=== PATIENT | female | born 1940 | race Caucasian/White ===

== ENCOUNTER 2016-07-04 08:49 | Day surgery (SDC) | payer MEDICARE ==
[~2016-07-04 08:49] MED LIST: DIPRIVAN 200 MG/20 ML IV ONE; Kenalog-40 IJ ONE; Sensorcaine 0.25% 10 ML IJ ONE
[2016-07-04] MEDS ORDERED: Lactated Ringers 1,000 ML IV ONE (11:24)
[2016-07-04] MEDS ORDERED: Lactated Ringers 1,000 ML IV SCH (11:30)
[2016-07-04] MEDS ORDERED: Pepcid 20 MG VIAL IV ONE (11:34)
[2016-07-04 11:42] VITALS: BP 134/75; PULSE 67; O2SAT 94
--- NOTE | 2016-07-04 14:28 | XRAY ---
Indication: Right L2-L5 MBB. Intraoperative fluoroscopy was provided for 17 seconds. Single frontal digital spot image of the lower lumbar spine submitted for interpretation demonstrates posterior spinal needles with the tips projecting over the expected course of the right L2-L5 nerve roots. Incidental L2 and L3 kyphoplasty. Correlate with intraoperative findings/report.
--- NOTE | 2016-07-04 16:42 | XRAY ---
17 seconds fluoroscopy time in surgery for right MBB L2-5.
== END 2016-07-04 12:00 | disposition home or self-care (01) ==
LOC: SDC-PAIN 08:49
PROVIDERS: ATTEND Pain Medicine Interventional Pain Medicine
DX: M47.816 Spondylosis without myelopathy or radiculopathy, lumbar region (principal); M54.5 Low back pain; S32.000D Wedge compression fracture of unspecified lumbar vertebra, subsequent encounter for fracture with routine healing
CPT/HCPCS: 64493; 64494; 64495; 72020; 77003; J2704; J3301

== ENCOUNTER 2016-08-14 08:32 | Inpatient (IN) | payer MEDICARE ==
[2016-08-14] MEDS ORDERED: Sodium Chloride 0.9% 500 ML 500 ML IV ONE (18:46)
[2016-08-14] MEDS ORDERED: TYLENOL 325 MG PO PRN (18:48)
[2016-08-14] MEDS ORDERED: Phenergan 25 MG INJ IV PRN (18:51)
[2016-08-14] MEDS ORDERED: Robitussin 100 MG/5 ML PO PRN (18:53)
[2016-08-14 19:46] LABS: BASOPHIL % 0.5 % (0.0-0.4); Eosinophil % 1.4 % (0.00-5.0); Granulocytes % 54.7 % (36.0-66.0); Lymphocytes % 32.5 % (24.0-44.0); Mean Cell Volume 92.5 fl (78-100); Mean Platelet Volume 10.7 fl (6-9.5); Monocytes % 10.9 % (0.0-12.0); Platelet Count 147 K/mm3 (150-450); Red Blood Count 4.01 M/mm3 (4.1-5.4); Red Cell Distribution Width 15.2 % (11.5-14.0); White Blood Count 4.3 K/mm3 (4.0-10.5)
[2016-08-14 19:49] LABS: Mean Corpuscular Hemoglobin 30.1 pg (26-32)
[2016-08-14 19:50] LABS: A-aADO2 26; ARTERIAL BLD GAS O2 SATURATION 97.9 % (95-100); ARTERIAL BLOOD GAS BASE EXCESS 3.3 (-2.0-2.0); ARTERIAL BLOOD GAS FIO2 21 %; ARTERIAL BLOOD GAS PO2 72 mmHg (75-100); ARTERIAL BLOOD GAS pH 7.44 (7.35-7.45)
[2016-08-14] MEDS ORDERED: Zithromax 500 MG/ 250 ML NaCl Premix 250 ML IV SCH (20:00)
[2016-08-14 20:09] LABS: ALBUMIN 3.2 g/dL (3.4-5.0); ANION GAP 17.3 MEQ/L (5-15); BILIRUBIN,TOTAL 0.6 mg/dL (0.2-1.0); Carbon Dioxide 24.7 mEq/L (21-32); Potassium 3.8 mEq/L (3.5-5.1); Total Protein 6.6 gm/dL (6.4-8.2)
[2016-08-14] MEDS ORDERED: Sodium Chloride 0.9% 1000 ML 0 ML ONE (20:48)
[2016-08-14] MEDS ORDERED: LIPITOR 40MG PO ONE (21:00)
[2016-08-14] MEDS ORDERED: MS CONTIN 30 MG PO PRN (21:00)
[2016-08-14] MEDS ORDERED: Mirapex 0.5 MG Tablet PO ONE (21:00)
[2016-08-14] MEDS ORDERED: BENADRYL 25 MG CAPSULE PO ONE (21:00)
[2016-08-14] MEDS ORDERED: NORCO 7.5/325 MG TAB PO ONE (21:00)
[2016-08-14] MEDS ORDERED: NEURONTIN 300 MG PO ONE (21:00)
[2016-08-14] MEDS ORDERED: Carafate SUSPENSION 1000 MG/10 ML PO ONE (21:00)
[2016-08-14] MEDS ORDERED: ZOCOR 20MG ONE (22:03)
[2016-08-14] MEDS: Dextrose 5% -0.45 NaCl 1000 ML 1,000 ML IV SCH (22:06)
[2016-08-14] MEDS: ROCEPHIN 1 Gm-D5w 50 ml Bag** 50 ML IV SCH (22:06)
[2016-08-14 22:07] LABS: Bacteria RARE /HPF (NEGATIVE); COMPLETE URINE MICROSCOPIC? YES; Collection Type CLEAN CATCH; Epithelial Cells RARE /HPF (FEW); Mucus SLIGHT /HPF (NEGATIVE); WBC 0-2 /HPF (0-5)
[2016-08-15] MEDS: DUONEB 0.5-3 MG/3 ml Neb IH SCH ×4 (00:34→19:22)
[2016-08-15 07:34] LABS: BASOPHIL % 0.6 % (0.0-0.4); Eosinophil % 1.7 % (0.00-5.0); Granulocytes % 52.5 % (36.0-66.0); Lymphocytes % 37.1 % (24.0-44.0); Mean Cell Volume 92.5 fl (78-100); Mean Corpuscular Hemoglobin 29.7 pg (26-32); Mean Platelet Volume 11.1 fl (6-9.5); Monocytes % 8.1 % (0.0-12.0); Platelet Count 173 K/mm3 (150-450); Red Blood Count 4.38 M/mm3 (4.1-5.4); Red Cell Distribution Width 15.2 % (11.5-14.0); White Blood Count 5.2 K/mm3 (4.0-10.5)
[2016-08-15 08:11] LABS: ALLEN TEST OK? YES
[2016-08-15 08:21] LABS: ALBUMIN 3.3 g/dL (3.4-5.0); ANION GAP 14.3 MEQ/L (5-15); BILIRUBIN,TOTAL 0.6 mg/dL (0.2-1.0); Carbon Dioxide 27.4 mEq/L (21-32); Potassium 3.8 mEq/L (3.5-5.1)
--- NOTE | 2016-08-15 08:41 | XRAY ---
Indication: Cough. General malaise. Comparison: September 04, 2008. PA/lateral chest again hyperinflated with now subtle left base infiltrate versus atelectasis. No consolidation or large effusion. Stable cardiomegaly with interval cardiac valvular replacement surgery and left-sided dual-lead pacemaker insertion. Vascularity normal. Stable hiatal hernia. Bony thorax again demonstrates osteopenia. There are now multilevel thoracolumbar compression deformities of uncertain chronicity and what appears to be the L1/L2 kyphoplasty. Impression: 1. New left base infiltrate/atelectasis. Correlate clinically. 2. Stable cardiomegaly, COPD, and hiatal hernia. 3. Multilevel thoracolumbar compression deformities of uncertain chronicity.
--- NOTE | 2016-08-15 09:52 | HP ---
HISTORY OF PRESENT ILLNESS: This is a 76 year-old woman who presented to my clinic with her for a sick visit. They report that she started feeling bad last Saturday like she was getting a cold then started having a stomach ache, chills, sweating and had headache as well. They denied any fever. She had some vomiting and loose cough and trouble sleeping. She reports she had been trying to drink fluids and reported she had been urinating okay. She was having a lot of trouble ambulating in the office. She had some chronic pain at baseline and is usually able to ambulate with a walker but was using the wheelchair available in the office with her assisting her to the bathroom. We tested her for influenza A and B in our clinic and that was negative. Given her poor condition as well as an oxygen saturation of 93% on room air it was decided to make her admission to the hospital for observation for further work up and evaluation for vomiting, dehydration and possible pneumonia. This morning the patient is a poor historian. She is falling asleep eating her breakfast and is alert and oriented x3 but thinks she took her morphine last night even though the nurses report that she did not want it and it was not documented that it was given. She does have a history of dementia. REVIEW OF SYSTEMS: Unobtainable any further than what is above in the history of present illness due to her dementia. 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 Kebede did. Moderate aortic valve stenosis, hypertension, hyperlipidemia, gastroesophageal reflux, Alzheimer's, constipation. PAST SURGICAL HISTORY: Appendectomy. Back surgery x2 by Dr. Lanier 2009. She had annuloplasty ring at [facility]. Tricuspid and mitral valve surgeries. Pacemaker placed in 2012. Cholecystectomy. Hysterectomy. Right ankle surgery. Removal of her ovary. Colonoscopy in 2014 that was normal. MEDICATIONS: Amlodipine 10 mg p.o. daily, atorvastatin 20 mg p.o. q.h.s., carvedilol 25 mg p.o. b.i.d., vitamin D 1,000 units p.o. daily, cranberry 500 mg daily, diphenhydramine 50 mg p.o. q.h.s., Aricept 10 mg p.o. daily, fluoxetine 40 mg p.o. daily, Furosemide 40 mg p.o. b.i.d., gabapentin 300 mg p.o. t.i.d., hydrocodone with acetaminophen 1 tablet p.o. b.i.d. as needed, Levemir 20 units subcutaneously b.i.d. but she states she only takes it depending on what her Accu-Chek is. Levothyroxine 75 mcg p.o. daily, losartan 100 mg p.o. daily, Amitiza 8 mcg p.o. b.i.d., Metformin 500 mg p.o. b.i.d., morphine sulfate 30 mg p.o. b.i.d. extended release, omeprazole 40 mg p.o. daily, potassium chloride 10 mEq p.o. b.i.d., Mirapex 1 mg p.o. q.h.s., docusate with Senna 1 tablet p.o. daily, sulcralfate 10 ml p.o. four times a day, vitamin E 400 units p.o. daily. ALLERGIES: OXYCOCODONE, PAPER TAPE. SOCIAL HISTORY: She is and lives with her . No tobacco or alcohol use. FAMILY HISTORY: Her mother had colon cancer. Her father had a CVA. She had a sister and brother with lung cancer. A sister with Alzheimer's. PHYSICAL EXAMINATION: VITAL SIGNS: Temperature current 98.3F, temperature max 98.7F, heart rate 69 to 74, respiratory rate 17 to 20, blood pressure 134 to 139 over 66 to 99, weight 90.7 kg. Oxygen saturation 94 to 96% on room air to 2 liters nasal cannula. GENERAL: The patient is sitting up in bed with her breakfast in front of her. She is alert and oriented x3 but falling asleep while I am talking to her. CVS: She has a regular rate and rhythm. She has a 3/6 systolic ejection murmur heard best at the right upper sternal border. No gallops or rubs. LUNGS: Clear to auscultation bilaterally. She has a wet sounding cough. No retractions. No dyspnea. ABDOMEN: Soft, nontender, nondistended with normal bowel sounds. EXTREMITIES: No clubbing, cyanosis or edema. SKIN: Warm, dry and intact. LABORATORY DATA AND TESTS: Her white blood cell count was normal at 4.3, repeat white blood cell count this morning 5.2. CMP: potassium 8.4, glucose 162, albumin 3.3. UA was negative. She has blood cultures x2 in the lab. A chest x-ray was read as new left base infiltrate/atelectasis. ASSESSMENT AND PLAN: 1) PNEUMONIA LEFT LOWER LOBE OF THE LUNG: Continue with azithromycin and ceftriaxone. 2) VOMITING: This seems to have resolved, will continue to monitor closely. 3) DEHYDRATION: She was given 500 ml normal saline bolus and D5 half normal saline at 60 ml/hour overnight. I am going to decrease her fluids to 30 ml/hour as I think her dehydration has resolved. 4) CHRONIC PAIN: Will continue with her home pain medications. 5) DEMENTIA: Will continue with her home medications.
[2016-08-15] MEDS ORDERED: Zithromax 500 MG/ 250 ML NaCl Premix 250 ML IV SCH (10:00)
[2016-08-15] MEDS ORDERED: CRANBERRY 500 MG PO SCH (10:00)
[2016-08-15] MEDS ORDERED: MEDICATION INTERVENTION MC PRN (10:50)
[2016-08-15] MEDS: ENOXAPARIN SODIUM SQ SCH (11:04)
[2016-08-15] MEDS: Lantus Insulin SQ SCH (11:05)
[2016-08-15] MEDS: NEURONTIN 300 MG PO SCH ×3 (11:07→21:02)
[2016-08-15] MEDS: COREG 12.5 MG PO SCH ×2 (11:08→21:02)
[2016-08-15] MEDS: Senokot-S Tablet PO SCH (11:08)
[2016-08-15] MEDS: Prozac 20 MG PO SCH (11:09)
[2016-08-15] MEDS: NORVASC 5 MG PO SCH (11:10)
[2016-08-15] MEDS: Cozaar 50 MG PO SCH (11:11)
[2016-08-15] MEDS: VITAMIN D PO SCH (11:12)
[2016-08-15] MEDS: Protonix 40MG Tablet PO SCH (11:12)
[2016-08-15] MEDS: Klor Con 10 MEQ PO SCH ×2 (11:12→21:02)
[2016-08-15] MEDS: Lasix 40 MG PO SCH ×2 (11:12→16:34)
[2016-08-15] MEDS: SYNTHROID 75 MCG PO SCH (11:13)
[2016-08-15] MEDS: Aricept 10 MG PO SCH (11:13)
[2016-08-15] MEDS: Vitamin E 400 UNIT SOFTGEL PO SCH (11:14)
[2016-08-15] MEDS: MS CONTIN 30 MG PO SCH ×2 (11:24→21:02)
[2016-08-15] MEDS: Carafate SUSPENSION 1000 MG/10 ML PO SCH ×3 (11:47→21:01)
[2016-08-15] MEDS: NovoLOG Insulin SQ PRN ×2 (12:02→16:44)
[2016-08-15] MEDS: Dextrose 5% -0.45 NaCl 1000 ML 1,000 ML IV SCH (18:28)
[2016-08-15] MEDS: ROCEPHIN 1 Gm-D5w 50 ml Bag** 50 ML IV SCH (20:02)
[2016-08-15] MEDS: Mirapex 0.5 MG Tablet PO SCH (21:02)
[2016-08-15] MEDS: ZOCOR 20MG PO SCH (21:02)
[2016-08-15] MEDS: Zithromax 500 MG/ 250 ML NaCl Premix 250 ML IV SCH (21:02)
[2016-08-16] MEDS: DUONEB 0.5-3 MG/3 ml Neb IH SCH ×4 (01:17→18:22)
[2016-08-16] MEDS: Carafate SUSPENSION 1000 MG/10 ML PO SCH ×4 (08:04→21:09)
[2016-08-16] MEDS: Lantus Insulin SQ SCH (08:05)
--- NOTE | 2016-08-16 08:37 | PCM.NOTE ---
Date and Time: 08/16/16831 Subjective Assessment: Vernell reports that she slept better and feels a little better but she continues to have a cough, wheezing, and generalized weakness. I discussed with her and her and he is concerned about her strength and taking care of herself at home. At baseline, she can ambulated with her walker and usually can take care of her ADL's. He states he helps her wash her back. She has become more deconditioned recently. - Review of Systems Constitutional: Fatigue Respiratory: Cough, Short Of Breath, Wheezing Cardiac: No Symptoms Abdominal/Gastrointestinal: No Symptoms Genitourinary Symptoms: No Symptoms Musculoskeletal: No Symptoms Skin: No Symptoms Objective Exam General Appearance: no apparent distress Neurologic Exam: alert, cooperative, normal mood/affect Skin Exam: normal color, warm, dry, No rash Respiratory Exam: airway intact, wheezing, No respiratory distress, No accessory muscle use, No crackles/rales, No rhonchi Cardiovascular Exam: regular rate/rhythm, normal heart sounds, No murmur, No friction rub, No gallop Gastrointestinal/Abdomen Exam: soft, normal bowel sounds, No tenderness, No distention, No mass Extremity Exam: other OBJECTIVE DATA Vital Signs: Vital Signs - 24 hr Temp Pulse Resp BP Pulse Ox 08/16/16 07:25 99.5 F 70 17 147/67 94 L 08/16/16 06:55 82 18 92 L 08/16/16 04:00 99.4 F 69 18 128/60 91 L 08/16/16 01:17 89 16 92 L 08/15/16 23:54 99.5 F 70 16 123/61 91 L 08/15/16 20:00 98.5 F 70 20 133/63 93 L 08/15/16 19:22 69 16 92 L 08/15/16 16:00 98.4 F 71 18 135/62 93 L 08/15/16 13:13 83 18 93 L 08/15/16 11:54 98.8 F 70 18 146/64 92 L Oxygen-Last 24 hours O2 Percentage 2 Liters = 28% Pain Assessment - Last Documented Pain Intensity 4 Pain Scale Used 0-10 Pain Scale Intake and Output: Intake & Output 08/14/16 08/15/16 08/16/16 08/17/16 06:59 06:59 06:59 06:59 Intake Total 806 1524 Output Total 600 600 600 Balance 206 924 -600 Weight 90.718 kg Lab Results: Accuchecks Date 08/16/16 Date 08/15/16 Date 08/15/16 Time 07:30 Time 16:30 Time 11:30 Accucheck Value: 135 Accucheck Value: 273 Accucheck Value: 211 Radiology Exams: Radiology Procedures Category Date Time Status CHEST 2 VIEWS (PA AND LAT) Urgent Exams 08/14/16 18:38 Completed Multi-Disciplinary Progress Notes: Multi-Disciplinary Progress Notes 08/15/16 13:06 Pharmacy Note by Walker Calvillo Please be aware of possible drug interaction with Zithromax and Aricept. May prolong QT interval. Initialized on 08/15/16 13:06 - END OF NOTE Assessment/Plan (1) Pneumonia Current Visit: Yes Status: Acute Qualifiers: Laterality: left Lung location: lower lobe of lung Assessment & Plan: Continue with azithromycin and ceftriaxone Day 3. Continue with oxygen as needed. Continue with breathing treatments. She may have some underlying copd that has not been diagnosed. Will start prednisone 40 mg po daily for 4 days. Code(s): J18.9 - PNEUMONIA, UNSPECIFIED ORGANISM (2) Chronic pain Current Visit: Yes Status: Acute Assessment & Plan: Continue her home doses of morphine sulfate ER 30 mg po bid. Code(s): G89.29 - OTHER CHRONIC PAIN (3) Dementia Current Visit: Yes Status: Acute Assessment & Plan: She is alert and oriented and talkative but often can't remember what happened the day before. Code(s): F03.90 - UNSPECIFIED DEMENTIA WITHOUT BEHAVIORAL DISTURBANCE
[2016-08-16] MEDS: COREG 12.5 MG PO SCH ×2 (09:33→21:08)
[2016-08-16] MEDS: Aricept 10 MG PO SCH (09:33)
[2016-08-16] MEDS: Klor Con 10 MEQ PO SCH ×2 (09:34→21:08)
[2016-08-16] MEDS: MS CONTIN 30 MG PO SCH ×2 (09:34→21:07)
[2016-08-16] MEDS: ENOXAPARIN SODIUM SQ SCH (09:34)
[2016-08-16] MEDS: Cozaar 50 MG PO SCH (09:34)
[2016-08-16] MEDS: Lasix 40 MG PO SCH ×2 (09:34→16:42)
[2016-08-16] MEDS: NORVASC 5 MG PO SCH (09:35)
[2016-08-16] MEDS: VITAMIN D PO SCH (09:35)
[2016-08-16] MEDS: NEURONTIN 300 MG PO SCH ×3 (09:35→21:08)
[2016-08-16] MEDS: Protonix 40MG Tablet PO SCH (09:35)
[2016-08-16] MEDS: Prozac 20 MG PO SCH (09:35)
[2016-08-16] MEDS: Senokot-S Tablet PO SCH (09:35)
[2016-08-16] MEDS: SYNTHROID 75 MCG PO SCH (09:35)
[2016-08-16] MEDS: Vitamin E 400 UNIT SOFTGEL PO SCH (09:36)
[2016-08-16] MEDS: NovoLOG Insulin SQ PRN ×2 (16:43→23:21)
[2016-08-16] MEDS: ROCEPHIN 1 Gm-D5w 50 ml Bag** 50 ML IV SCH (20:56)
[2016-08-16] MEDS: Zithromax 500 MG/ 250 ML NaCl Premix 250 ML IV SCH (21:07)
[2016-08-16] MEDS: Mirapex 0.5 MG Tablet PO SCH (21:08)
[2016-08-16] MEDS: ZOCOR 20MG PO SCH (21:09)
[2016-08-17] MEDS: DUONEB 0.5-3 MG/3 ml Neb IH SCH ×4 (01:20→21:17)
[2016-08-17] MEDS: Carafate SUSPENSION 1000 MG/10 ML PO SCH ×4 (07:39→21:00)
[2016-08-17] MEDS: Lantus Insulin SQ SCH (07:40)
--- NOTE | 2016-08-17 08:19 | PCM.NOTE ---
Date and Time: 08/17/16811 Subjective Assessment: She reports that she is feeling a little better but she continues to have a cough and is in general weak. She reports she is eating well. She plans to go to [facility] for rehab after her inpatient stay here. She continues to have chronic back pain and states she usually takes the hydrocodone in between the morphine. - Review of Systems Constitutional: No Symptoms Eyes: No Symptoms Ears, Nose, & Throat: No Symptoms Respiratory: Cough, Short Of Breath, Wheezing Cardiac: No Symptoms Abdominal/Gastrointestinal: No Symptoms Genitourinary Symptoms: No Symptoms Musculoskeletal: No Symptoms Skin: No Symptoms Objective Exam General Appearance: no apparent distress, alert, obese Neurologic Exam: cooperative, normal mood/affect Skin Exam: normal color, warm, dry, No rash Respiratory Exam: other (few scattered wheezes, no crackles, equal breath sounds , + cough) Cardiovascular Exam: regular rate/rhythm, normal heart sounds, No murmur, No friction rub, No gallop Gastrointestinal/Abdomen Exam: soft, normal bowel sounds, No tenderness, No distention, No mass Extremity Exam: other (no c/c/e) OBJECTIVE DATA Vital Signs: Vital Signs - 24 hr Temp Pulse Resp BP Pulse Ox 08/17/16 08:00 98.8 F 70 16 143/68 92 L 08/17/16 04:00 98.7 F 70 16 136/65 90 L 08/17/16 01:20 69 18 91 L 08/17/16 00:00 98.3 F 76 20 130/61 92 L 08/16/16 20:00 98.7 F 70 20 134/65 93 L 08/16/16 18:23 72 18 95 08/16/16 16:00 98.1 F 71 19 128/61 95 08/16/16 13:19 79 18 95 08/16/16 12:00 98.0 F 78 19 127/94 91 L Pain Assessment - Last Documented Pain Intensity 3 Pain Scale Used 0-10 Pain Scale Intake and Output: Intake & Output 08/15/16 08/16/16 08/17/16 08/18/16 06:59 06:59 06:59 06:59 Intake Total 806 1524 1506 Output Total 728 730 1998 Balance 206 924 -144 Weight 90.718 kg Lab Results: Accuchecks Date 08/16/16 Date 08/16/16 Time 17:00 Time 11:30 Accucheck Value: 277 Accucheck Value: 167 Multi-Disciplinary Progress Notes: Multi-Disciplinary Progress Notes 08/17/16 01:25 Respiratory Note by Luis Cedeño CPAP UNIT IS BY BEDSIDE. Initialized on 08/17/16 01:25 - END OF NOTE Assessment/Plan (1) Pneumonia Current Visit: Yes Status: Acute Qualifiers: Laterality: left Lung location: lower lobe of lung Assessment & Plan: Continue with ceftriaxone and azithromycin. Will plan on 5 days of azithromycin. Continue oxygen as needed and breathing treatments. Code(s): J18.9 - PNEUMONIA, UNSPECIFIED ORGANISM (2) Chronic pain Current Visit: Yes Status: Acute Assessment & Plan: Continue morphine sulfate scheduled and add back hydrocodone 7.5 mg po bid prn. Code(s): G89.29 - OTHER CHRONIC PAIN (3) Dementia Current Visit: Yes Status: Acute Assessment & Plan: Stable. Continue home medications. Code(s): F03.90 - UNSPECIFIED DEMENTIA WITHOUT BEHAVIORAL DISTURBANCE (4) Diabetes type 2, controlled Current Visit: Yes Status: Acute Qualifiers: Diabetes mellitus complication status: without complication Assessment & Plan: Continue levemir and sliding scale of novolog. Code(s): E11.9 - TYPE 2 DIABETES MELLITUS WITHOUT COMPLICATIONS
[2016-08-17] MEDS: Prozac 20 MG PO SCH (09:02)
[2016-08-17] MEDS: Dextrose 5% -0.45 NaCl 1000 ML 1,000 ML IV SCH (09:02)
[2016-08-17] MEDS: NORVASC 5 MG PO SCH (09:03)
[2016-08-17] MEDS: ENOXAPARIN SODIUM SQ SCH (09:04)
[2016-08-17] MEDS: MS CONTIN 30 MG PO SCH ×2 (09:04→20:56)
[2016-08-17] MEDS: COREG 12.5 MG PO SCH ×2 (09:04→20:56)
[2016-08-17] MEDS: SYNTHROID 75 MCG PO SCH (09:05)
[2016-08-17] MEDS: Cozaar 50 MG PO SCH (09:05)
[2016-08-17] MEDS: Lasix 40 MG PO SCH ×2 (09:05→16:22)
[2016-08-17] MEDS: Protonix 40MG Tablet PO SCH (09:05)
[2016-08-17] MEDS: NEURONTIN 300 MG PO SCH ×3 (09:05→20:56)
[2016-08-17] MEDS: Aricept 10 MG PO SCH (09:05)
[2016-08-17] MEDS: VITAMIN D PO SCH (09:05)
[2016-08-17] MEDS: Klor Con 10 MEQ PO SCH ×2 (09:05→20:56)
[2016-08-17] MEDS: Vitamin E 400 UNIT SOFTGEL PO SCH (09:06)
[2016-08-17] MEDS: Senokot-S Tablet PO SCH (09:06)
[2016-08-17] MEDS: DELTASONE 20 MG PO SCH (09:06)
[2016-08-17] MEDS: NORCO 7.5/325 MG TAB PO PRN (14:33)
[2016-08-17] MEDS: NovoLOG Insulin SQ PRN ×2 (16:22→21:01)
[2016-08-17] MEDS: PATIENT OWN MEDICATION PO SCH ×3 (16:22→22:28)
[2016-08-17] MEDS: ROCEPHIN 1 Gm-D5w 50 ml Bag** 50 ML IV SCH (20:52)
[2016-08-17] MEDS: ZOCOR 20MG PO SCH (20:55)
[2016-08-17] MEDS: Mirapex 0.5 MG Tablet PO SCH (20:56)
[2016-08-17] MEDS: Zithromax 500 MG/ 250 ML NaCl Premix 250 ML IV SCH (22:23)
[2016-08-18] MEDS: DUONEB 0.5-3 MG/3 ml Neb IH SCH ×4 (01:16→19:13)
[2016-08-18] MEDS: Carafate SUSPENSION 1000 MG/10 ML PO SCH ×4 (06:57→22:26)
[2016-08-18] MEDS: Lantus Insulin SQ SCH (08:22)
[2016-08-18] MEDS: COREG 12.5 MG PO SCH ×2 (09:20→22:23)
[2016-08-18] MEDS: Aricept 10 MG PO SCH (09:20)
[2016-08-18] MEDS: Cozaar 50 MG PO SCH (09:21)
[2016-08-18] MEDS: DELTASONE 20 MG PO SCH (09:23)
[2016-08-18] MEDS: ENOXAPARIN SODIUM SQ SCH (09:24)
[2016-08-18] MEDS: Klor Con 10 MEQ PO SCH ×2 (09:25→22:23)
[2016-08-18] MEDS: Lasix 40 MG PO SCH ×2 (09:26→16:56)
[2016-08-18] MEDS: MS CONTIN 30 MG PO SCH ×2 (09:26→22:23)
[2016-08-18] MEDS: NORVASC 5 MG PO SCH (09:27)
[2016-08-18] MEDS: NEURONTIN 300 MG PO SCH ×3 (09:27→22:23)
[2016-08-18] MEDS: PATIENT OWN MEDICATION PO SCH ×4 (09:28→22:24)
[2016-08-18] MEDS: Protonix 40MG Tablet PO SCH (09:31)
[2016-08-18] MEDS: Prozac 20 MG PO SCH (09:31)
[2016-08-18] MEDS: VITAMIN D PO SCH (09:32)
[2016-08-18] MEDS: SYNTHROID 75 MCG PO SCH (09:32)
[2016-08-18] MEDS: Vitamin E 400 UNIT SOFTGEL PO SCH (09:32)
[2016-08-18] MEDS: Senokot-S Tablet PO SCH (09:41)
--- NOTE | 2016-08-18 09:47 | PCM.NOTE ---
Date and Time: 08/18/16 09 Subjective Assessment: She continues to complain of back pain and chest wall soreness. Her nurse says she sleeps and wakes up asking for pain medication but does not seem to be in acute distress. She notes that yesterday when she got her hydrocodone prn dose, she fell asleep on the stool. She continues to have a cough and plans to go to rehab at [facility]. - Review of Systems Constitutional: Fatigue Eyes: No Symptoms Ears, Nose, & Throat: No Symptoms Respiratory: Cough, Short Of Breath Cardiac: No Symptoms Abdominal/Gastrointestinal: No Symptoms Genitourinary Symptoms: No Symptoms Musculoskeletal: No Symptoms Skin: No Symptoms Neurological: No Symptoms Objective Exam General Appearance: no apparent distress, alert, obese Neurologic Exam: alert, cooperative, normal mood/affect Skin Exam: normal color, warm, dry, No rash Respiratory Exam: other (few scattered wheezes, equal breath sounds) Cardiovascular Exam: regular rate/rhythm, normal heart sounds, No murmur, No friction rub, No gallop Gastrointestinal/Abdomen Exam: soft, normal bowel sounds, No tenderness, No distention, No mass Extremity Exam: other (no c/c/e) OBJECTIVE DATA Vital Signs: Vital Signs - 24 hr Temp Pulse Resp BP Pulse Ox 08/18/16 07:31 96.4 F 73 17 122/79 93 L 08/18/16 06:44 75 18 96 08/18/16 04:00 98.5 F 70 15 122/86 94 L 08/18/16 01:16 69 16 89 L 08/18/16 00:00 98.9 F 70 16 111/56 94 L 08/17/16 21:17 86 16 92 L 08/17/16 20:00 98.4 F 80 16 129/66 92 L 08/17/16 16:00 98.4 F 70 20 124/59 97 08/17/16 15:27 70 16 92 L 08/17/16 14:33 98.8 F 08/17/16 11:32 98.8 F 70 18 141/63 92 L Oxygen-Last 24 hours O2 Percentage 2 Liters = 28% Pain Assessment - Last Documented Pain Intensity 8 Pain Scale Used 0-10 Pain Scale Intake and Output: Intake & Output 08/16/16 08/17/16 08/18/16 08/19/16 06:59 06:59 06:59 07:59 Intake Total 1524 1506 2124 Output Total 600 1650 1300 Balance 924 -144 824 Lab Results: Accuchecks Date 08/17/16 Date 08/17/16 Accucheck Value: 268 Accucheck Value: 176 Assessment/Plan (1) Pneumonia Current Visit: Yes Status: Acute Qualifiers: Laterality: left Lung location: lower lobe of lung Assessment & Plan: Continue azithromycin for 5 days total and continue ceftriaxone. Oxygen as needed and see if she qualifies for oxygen at rehab. Continue breathing treatments as needed. Code(s): J18.9 - PNEUMONIA, UNSPECIFIED ORGANISM (2) Chronic pain Current Visit: Yes Status: Acute Assessment & Plan: Continue home doses of pain medication. Code(s): G89.29 - OTHER CHRONIC PAIN (3) Dementia Current Visit: Yes Status: Acute Assessment & Plan: Stable. Continue home medication. Code(s): F03.90 - UNSPECIFIED DEMENTIA WITHOUT BEHAVIORAL DISTURBANCE (4) Diabetes type 2, controlled Current Visit: Yes Status: Acute Qualifiers: Diabetes mellitus complication status: without complication Assessment & Plan: Continue current medication. Her blood glucoses are fairly well controlled. Code(s): E11.9 - TYPE 2 DIABETES MELLITUS WITHOUT COMPLICATIONS
[2016-08-18] MEDS: NORCO 7.5/325 MG TAB PO PRN (14:37)
[2016-08-18] MEDS: NovoLOG Insulin SQ PRN ×2 (16:56→22:24)
[2016-08-18] MEDS: ROCEPHIN 1 Gm-D5w 50 ml Bag** 50 ML IV SCH (19:56)
[2016-08-18] MEDS: Zithromax 500 MG/ 250 ML NaCl Premix 250 ML IV SCH (22:23)
[2016-08-18] MEDS: ZOCOR 20MG PO SCH (22:23)
[2016-08-18] MEDS: Mirapex 0.5 MG Tablet PO SCH (22:23)
[2016-08-19] MEDS: DUONEB 0.5-3 MG/3 ml Neb IH SCH ×4 (01:38→19:04)
[2016-08-19] MEDS: Protonix 40MG Tablet PO SCH (08:22)
[2016-08-19] MEDS: NORVASC 5 MG PO SCH (08:22)
[2016-08-19] MEDS: ENOXAPARIN SODIUM SQ SCH (08:22)
[2016-08-19] MEDS: Cozaar 50 MG PO SCH (08:23)
[2016-08-19] MEDS: VITAMIN D PO SCH (08:24)
[2016-08-19] MEDS: Prozac 20 MG PO SCH (08:24)
[2016-08-19] MEDS: SYNTHROID 75 MCG PO SCH (08:24)
[2016-08-19] MEDS: MS CONTIN 30 MG PO SCH ×2 (08:24→21:34)
[2016-08-19] MEDS: Senokot-S Tablet PO SCH (08:25)
[2016-08-19] MEDS: COREG 12.5 MG PO SCH ×2 (08:25→21:34)
[2016-08-19] MEDS: Lasix 40 MG PO SCH ×2 (08:25→18:07)
[2016-08-19] MEDS: DELTASONE 20 MG PO SCH (08:27)
[2016-08-19] MEDS: Aricept 10 MG PO SCH (08:27)
[2016-08-19] MEDS: Carafate SUSPENSION 1000 MG/10 ML PO SCH ×4 (08:28→21:34)
[2016-08-19] MEDS: Lantus Insulin SQ SCH (08:28)
[2016-08-19] MEDS: PATIENT OWN MEDICATION PO SCH ×3 (08:36→21:34)
[2016-08-19] MEDS: Vitamin E 400 UNIT SOFTGEL PO SCH (08:36)
[2016-08-19] MEDS: Klor Con 10 MEQ PO SCH ×2 (08:37→21:34)
[2016-08-19] MEDS: NEURONTIN 300 MG PO SCH ×3 (08:37→21:34)
[2016-08-19] MEDS: NORCO 7.5/325 MG TAB PO PRN ×2 (12:05→16:50)
[2016-08-19] MEDS: NovoLOG Insulin SQ PRN ×3 (12:06→21:37)
--- NOTE | 2016-08-19 12:35 | PCM.NOTE ---
Date and Time: 08/19/16 1231 Subjective Assessment: She reports she has been able to get up and walk around. Her appetite is not very good yet. She reports she is planning on going to [place] once we have approval. Her is at the bedside and is asking about a scooter. I explained as an outpatient she will need a mobility evaluation by PT/OT and to see me in the clinic for a mobility exam. I explained that this had to be used in the home to solve mobility problems. - Review of Systems Constitutional: No Symptoms Eyes: No Symptoms Ears, Nose, & Throat: No Symptoms Respiratory: Cough, Short Of Breath Cardiac: No Symptoms Abdominal/Gastrointestinal: No Symptoms Genitourinary Symptoms: No Symptoms Musculoskeletal: No Symptoms Skin: No Symptoms Objective Exam General Appearance: no apparent distress, alert, obese Neurologic Exam: alert, cooperative, normal mood/affect Skin Exam: normal color, warm, dry Respiratory Exam: normal breath sounds, lungs clear, No crackles/rales, No rhonchi, No wheezing Cardiovascular Exam: regular rate/rhythm, normal heart sounds, No murmur, No friction rub, No gallop Gastrointestinal/Abdomen Exam: soft, normal bowel sounds Extremity Exam: other (no c/c/e) OBJECTIVE DATA Vital Signs: Vital Signs - 24 hr Temp Pulse Resp BP Pulse Ox 08/19/16 11:55 98.5 F 70 17 123/57 92 L 08/19/16 09:00 18 08/19/16 07:38 98.1 F 65 18 132/62 93 L 08/19/16 04:10 98.2 F 70 16 115/56 96 08/19/16 00:00 98.7 F 70 15 104/53 93 L 08/18/16 20:00 98.6 F 71 15 102/52 95 08/18/16 19:00 74 18 95 08/18/16 16:00 98.7 F 71 17 111/53 92 L 08/18/16 13:00 76 18 96 08/18/16 12:00 98.9 F 70 18 107/58 92 L Oxygen-Last 24 hours O2 Percentage 2 Liters = 28% O2 Percentage 2 Liters = 28% O2 Percentage 2 Liters = 28% O2 Percentage 2 Liters = 28% O2 Percentage 2 Liters = 28% Pain Assessment - Last Documented Pain Intensity 10 Pain Scale Used 0-10 Pain Scale Intake and Output: Intake & Output 08/17/16 08/18/16 08/19/16 08/20/16 05:59 05:59 06:59 06:59 Intake Total Output Total 600 Balance -600 Lab Results: Accuchecks Date 08/19/16 Date 08/18/16 Time 07:45 Time 16:30 Accucheck Value: 153 Accucheck Value: 366 Multi-Disciplinary Progress Notes: Multi-Disciplinary Progress Notes 08/19/16 09:36 Respiratory Note by Mariann Adams CPAP D/CD PT STATES SHE WILL NOT WEAR Initialized on 08/19/16 09:36 - END OF NOTE Assessment/Plan (1) Pneumonia Current Visit: Yes Status: Acute Qualifiers: Laterality: left Lung location: lower lobe of lung Assessment & Plan: Continue ceftriaxone. D/C azithromycin. Slowly improving. Code(s): J18.9 - PNEUMONIA, UNSPECIFIED ORGANISM (2) Chronic pain Current Visit: Yes Status: Acute Assessment & Plan: Controlled with her home pain medication. Code(s): G89.29 - OTHER CHRONIC PAIN (3) Dementia Current Visit: Yes Status: Acute Assessment & Plan: Stable on her current medications. Code(s): F03.90 - UNSPECIFIED DEMENTIA WITHOUT BEHAVIORAL DISTURBANCE (4) Diabetes type 2, controlled Current Visit: Yes Status: Acute Qualifiers: Diabetes mellitus complication status: without complication Assessment & Plan: Well controlled currently. Code(s): E11.9 - TYPE 2 DIABETES MELLITUS WITHOUT COMPLICATIONS
[2016-08-19] MEDS: Dextrose 5% -0.45 NaCl 1000 ML 1,000 ML IV SCH (13:08)
[2016-08-19] MEDS: ROCEPHIN 1 Gm-D5w 50 ml Bag** 50 ML IV SCH (20:14)
[2016-08-19] MEDS: Mirapex 0.5 MG Tablet PO SCH (21:34)
[2016-08-19] MEDS: ZOCOR 20MG PO SCH (21:34)
[2016-08-20] MEDS: DUONEB 0.5-3 MG/3 ml Neb IH SCH ×4 (01:21→19:08)
[2016-08-20] MEDS: Carafate SUSPENSION 1000 MG/10 ML PO SCH ×4 (07:46→22:14)
[2016-08-20] MEDS: Lantus Insulin SQ SCH (07:46)
--- NOTE | 2016-08-20 08:55 | PCM.NOTE ---
Date and Time: 08/20/16 0850 Subjective Assessment: Med nurse today reports night nurse said patient was falling asleep on toilet but I do not see any documentation in her chart about this. The patient denies falling asleep on the toilet. Vernell is frustrated about this and also states she doesn't get what she orders from the kitchen. She is ready to go to [place] and states that [facility] but I have not gotten the go ahead from discharge planning at this time so we are awaiting the ok to discharge her. - Review of Systems Constitutional: Malaise Eyes: No Symptoms Ears, Nose, & Throat: No Symptoms Respiratory: Cough, Short Of Breath Cardiac: No Symptoms Abdominal/Gastrointestinal: No Symptoms Genitourinary Symptoms: No Symptoms Musculoskeletal: Back Pain Skin: No Symptoms Objective Exam General Appearance: no apparent distress, alert, obese Neurologic Exam: alert, cooperative, normal mood/affect, other (talkative) Skin Exam: normal color, warm, dry, No rash Respiratory Exam: normal breath sounds, No crackles/rales, No rhonchi, No wheezing Cardiovascular Exam: regular rate/rhythm, normal heart sounds, No murmur, No friction rub, No gallop Gastrointestinal/Abdomen Exam: soft, normal bowel sounds, No tenderness, No distention, No mass Extremity Exam: other (no c/c/e) OBJECTIVE DATA Vital Signs: Vital Signs - 24 hr Temp Pulse Resp BP Pulse Ox 08/20/16 07:39 98.9 F 70 19 139/65 91 L 08/20/16 07:06 69 16 97 08/20/16 04:39 98.0 F 68 16 123/64 96 08/20/16 01:21 70 18 94 L 08/20/16 00:54 98.0 F 72 15 111/71 92 L 08/19/16 20:00 71 18 98 08/19/16 19:55 98.1 F 71 15 124/58 97 08/19/16 17:00 18 08/19/16 16:10 98.9 F 70 18 116/55 94 L 08/19/16 13:00 14 08/19/16 11:55 98.5 F 70 17 123/57 92 L 08/19/16 09:00 18 Oxygen-Last 24 hours O2 Percentage 2 Liters = 28% O2 Percentage 2 Liters = 28% O2 Percentage 2 Liters = 28% O2 Percentage 2 Liters = 28% O2 Percentage 2 Liters = 28% Pain Assessment - Last Documented Pain Intensity 5 Pain Scale Used 0-10 Pain Scale Intake and Output: Intake & Output 08/18/16 08/19/16 08/20/16 08/21/16 05:59 06:59 06:59 06:59 Intake Total 1243 Output Total 2250 600 Balance -1007 -600 Lab Results: Accuchecks Date 08/19/16 Date 08/19/16 Time 16:30 Time 11:30 Accucheck Value: 288 Accucheck Value: 221 Multi-Disciplinary Progress Notes: Multi-Disciplinary Progress Notes 08/19/16 09:36 Respiratory Note by Mariann Adams CPAP D/CD PT STATES SHE WILL NOT WEAR Initialized on 08/19/16 09:36 - END OF NOTE Assessment/Plan (1) Pneumonia Current Visit: Yes Status: Acute Qualifiers: Laterality: left Lung location: lower lobe of lung Assessment & Plan: Continue ceftriaxone Day 6. She completed a 5 day course of azithromycin already. Slowly improving. Continue oxygen as needed. Plan for her to go to [facility] for rehab after her discharge here. Code(s): J18.9 - PNEUMONIA, UNSPECIFIED ORGANISM (2) Chronic pain Current Visit: Yes Status: Acute Assessment & Plan: Continue her current doses of pain medications. Code(s): G89.29 - OTHER CHRONIC PAIN (3) Dementia Current Visit: Yes Status: Acute Assessment & Plan: Continue home medications. Stable. Code(s): F03.90 - UNSPECIFIED DEMENTIA WITHOUT BEHAVIORAL DISTURBANCE (4) Diabetes type 2, controlled Current Visit: Yes Status: Acute Qualifiers: Diabetes mellitus complication status: without complication Assessment & Plan: Continue current medication. Code(s): E11.9 - TYPE 2 DIABETES MELLITUS WITHOUT COMPLICATIONS
[2016-08-20] MEDS: NORVASC 5 MG PO SCH (09:00)
[2016-08-20] MEDS: Senokot-S Tablet PO SCH (09:01)
[2016-08-20] MEDS: Protonix 40MG Tablet PO SCH (09:01)
[2016-08-20] MEDS: Cozaar 50 MG PO SCH (09:01)
[2016-08-20] MEDS: SYNTHROID 75 MCG PO SCH (09:01)
[2016-08-20] MEDS: MS CONTIN 30 MG PO SCH (09:01)
[2016-08-20] MEDS: Lasix 40 MG PO SCH ×2 (09:01→16:43)
[2016-08-20] MEDS: COREG 12.5 MG PO SCH ×2 (09:01→22:13)
[2016-08-20] MEDS: Prozac 20 MG PO SCH (09:02)
[2016-08-20] MEDS: Aricept 10 MG PO SCH (09:02)
[2016-08-20] MEDS: Klor Con 10 MEQ PO SCH ×2 (09:02→22:13)
[2016-08-20] MEDS: NEURONTIN 300 MG PO SCH ×3 (09:03→22:13)
[2016-08-20] MEDS: ENOXAPARIN SODIUM SQ SCH (09:03)
[2016-08-20] MEDS: PATIENT OWN MEDICATION PO SCH ×3 (09:04→22:14)
[2016-08-20] MEDS: Vitamin E 400 UNIT SOFTGEL PO SCH (09:04)
[2016-08-20] MEDS: Glucophage XR 500 MG PO SCH ×2 (10:48→22:13)
[2016-08-20] MEDS: NovoLOG Insulin SQ PRN (12:24)
[2016-08-20] MEDS: ROCEPHIN 1 Gm-D5w 50 ml Bag** 50 ML IV SCH (20:32)
[2016-08-20] MEDS: ZOCOR 20MG PO SCH (22:13)
[2016-08-20] MEDS: Mirapex 0.5 MG Tablet PO SCH (22:13)
[2016-08-20] MEDS: Omnicef 125 MG/5 ML SUSP PO SCH (22:15)
[2016-08-21] MEDS: DUONEB 0.5-3 MG/3 ml Neb IH SCH ×2 (00:58→07:54)
[2016-08-21] MEDS: Carafate SUSPENSION 1000 MG/10 ML PO SCH ×2 (07:35→11:13)
[2016-08-21] MEDS: Lantus Insulin SQ SCH (07:45)
--- NOTE | 2016-08-21 08:57 | PCM.DCORD ---
- Discharge Discharge Date: 08/21/16 Disposition: HOME HEALTH SERVICE Condition: Fair Prescriptions: New Cefdinir 300 mg PO BID #6 capsule Insulin Detemir [Levemir] 10 unit SQ DAILY #0 ml Albuterol/Ipratropium 3ml Neb* [DUONEB 0.5-3 MG/3 ml Neb] 3 ml NEB QID PRN #150 ampul.neb PRN Reason: cough/wheezing Continue Sennosides/Docusate Sodium [Senna-Docusate Sodium Tablet] 1 tab PO DAILY Fluoxetine HCl [Prozac] 40 mg PO DAILY Pramipexole Di-HCl 0.5 mg [Mirapex 0.5 MG Tablet] 1 mg PO HS Omeprazole 40 mg PO DAILY Morphine Sulfate [Morphine Sulfate ER] 30 mg PO BID Metformin HCl Xr 500 mg [Glucophage XR 500 MG] 500 mg PO BID Losartan Potassium 100 mg PO DAILY Gabapentin 300 mg PO TID Furosemide 40 mg PO BID Carvedilol [Coreg] 25 mg PO BID Atorvastatin Calcium 20 mg PO HS Amlodipine Besylate 10 mg [Norvasc 10 MG] 10 mg PO DAILY Lubiprostone [Amitiza] 8 mcg PO BID Potassium Chloride 10 Meq Tab* [Klor Con 10 MEQ] 10 meq PO BID Hydrocodone Bit/Acetaminophen [Bow 7.5-325 Tablet] 1 tab PO BIDPRN PRN PRN Reason: Pain Donepezil HCl 10 mg [Aricept 10 MG] 10 mg PO DAILY Sucralfate 1000 mg/10 ml [Carafate SUSPENSION 1000 MG/10 ML] 10 ml PO QID Levothyroxine Sodium 75 Mcg [Synthroid 75 Mcg] 75 mcg PO DAILY Cranberry 500 mg PO DAILY Cholecalciferol (Vitamin D3) [Vitamin D] 1,000 unit PO DAILY Vitamin E 400 Units [Vitamin E 400 UNIT SOFTGEL] 400 unit PO DAILY Discontinued Insulin Detemir [Levemir] 20 units SQ BID Diphenhydramine HCl 50 mg PO HSPRN PRN PRN Reason: Allergies Additional Instructions: Home oxygen 2 L nasal cannual at night. Use nebulizer four times a day as needed for wheezing or cough. Follow up with: NIALL KIM [Primary Care Provider] - 1 Week
[2016-08-21] MEDS: Glucophage XR 500 MG PO SCH (09:46)
[2016-08-21] MEDS: NORVASC 5 MG PO SCH (09:46)
[2016-08-21] MEDS: Senokot-S Tablet PO SCH (09:46)
[2016-08-21] MEDS: Prozac 20 MG PO SCH (09:46)
[2016-08-21] MEDS: COREG 12.5 MG PO SCH (09:46)
[2016-08-21] MEDS: Lasix 40 MG PO SCH (09:46)
[2016-08-21] MEDS: NEURONTIN 300 MG PO SCH (09:46)
[2016-08-21] MEDS: Aricept 10 MG PO SCH (09:46)
[2016-08-21] MEDS: Klor Con 10 MEQ PO SCH (09:46)
[2016-08-21] MEDS: VITAMIN D PO SCH (09:46)
[2016-08-21] MEDS: Cozaar 50 MG PO SCH (09:46)
[2016-08-21] MEDS: SYNTHROID 75 MCG PO SCH (09:47)
[2016-08-21] MEDS: Protonix 40MG Tablet PO SCH (09:47)
[2016-08-21] MEDS: ENOXAPARIN SODIUM SQ SCH (09:47)
[2016-08-21] MEDS: PATIENT OWN MEDICATION PO SCH ×2 (09:47→09:49)
[2016-08-21] MEDS: Vitamin E 400 UNIT SOFTGEL PO SCH (09:49)
[2016-08-21] MEDS: Omnicef 125 MG/5 ML SUSP PO SCH (09:56)
[2016-08-21] MEDS: NovoLOG Insulin SQ PRN (11:34)
[2016-08-21 13:19] VITALS: BP 104/54; PULSE 70; O2SAT 92
--- NOTE | 2016-08-21 13:27 | DS ---
DISCHARGE DIAGNOSES: 1) LEFT LOWER LOBE PNEUMONIA. 2) CHRONIC PAIN. 3) DEMENTIA. 4) DIABETES MELLITUS TYPE 2. 5) CHRONIC OBSTRUCTIVE PULMONARY DISEASE EXACERBATION. DISCHARGE PHYSICAL EXAMINATION: VITALS: Temperature current 98.7F, temperature max 98.8F, heart rate 67 to 73, respiratory rate 18 to 20, blood pressure 120 to 122 over 57 to 63. Oxygen saturation 88 to 91% on room air. GENERAL: The patient is a pleasant talkative lady sitting up in bed in no acute distress. CVS: She has a regular rate and rhythm. No murmurs, gallops or rubs. CHEST: Clear to auscultation bilaterally. No crackles or wheezes. She does have a deep cough. ABDOMEN: Soft, nontender, nondistended with normal bowel sounds. EXTREMITIES: No clubbing, cyanosis or edema. SKIN: Warm, dry and intact. HOSPITAL COURSE: 1) LEFT LOWER LOBE PNEUMONIA: She was started on azithromycin and ceftriaxone. She finished out a five day course of azithromycin. She removed her IV yesterday and so she was changed to cefdinir 300 mg p.o. b.i.d. and will plan to finish out three more days of this for a total of ten day course of cephalosporin. She had oxygen saturation down to 88% at night and so she qualifies for home oxygen and this is being set up. We wanted her to have a rehab stay but her insurance denied this. She has been using DuoNeb here at the hospital. 2) CHRONIC OBSTRUCTIVE PULMONARY DISEASE: Her x-ray is concerning for chronic obstructive pulmonary disease as well as her wheezing. She was started on DuoNeb here which will continue at home. She is also hypoxic at night and needs home oxygen. Will continue with nebulizer at home as needed and she will need a nebulizer to take home with her. 3) CHRONIC PAIN: She was continued on her home dose of pain medicine, this has fairly well controlled here. She is to continue to follow up with pain management doctor. 4) DEMENTIA: She was stable on her home medications. 5) DIABETES MELLITUS TYPE 2: She was given Levemir 10 units daily here as well as a sliding scale. DISCHARGE MEDICATIONS: Please see the discharge order. DISPOSITION: The patient was discharged to home in fair condition. We are hoping that her insurance will approve home health care.
== END 2016-08-21 13:05 | disposition home health service (06) | DRG 194 ==
LOC: MED SURG 08:32 → OBSVTOIN 08-16 08:32
PROVIDERS: ADMIT Internal Medicine; ATTEND Internal Medicine
DX: J18.9 Pneumonia, unspecified organism (principal); J44.1 Chronic obstructive pulmonary disease with (acute) exacerbation; G89.29 Other chronic pain; F45.42 Pain disorder with related psychological factors; G30.9 Alzheimer's disease, unspecified; F02.80 Dementia in other diseases classified elsewhere, unspecified severity, without behavioral disturbance, psychotic disturbance, mood disturbance, and anxiety; E11.9 Type 2 diabetes mellitus without complications; Z79.4 Long term (current) use of insulin; E86.0 Dehydration; I10 Essential (primary) hypertension; E78.5 Hyperlipidemia, unspecified; K21.9 Gastro-esophageal reflux disease without esophagitis; Z95.0 Presence of cardiac pacemaker; Z95.4 Presence of other heart-valve replacement
CPT/HCPCS: 36415; 36600; 71020; 80053; 81000; 82375; 82803; 82962; 85025; 87040; 94640; 94660; 94760; A9270; G0378; J0456; J0696; J1650; J2550

== ENCOUNTER 2016-08-29 11:29 | Day surgery (SDC) | payer MEDICARE ==
[~2016-08-29 11:29] MED LIST changes: -Kenalog-40 IJ ONE; -Sensorcaine 0.25% 10 ML IJ ONE
--- NOTE | 2016-08-29 14:23 | XRAY ---
Indication: Right L2-L5 MBB. Intraoperative fluoroscopy was provided for 18 seconds. Single digital spot image submitted for interpretation demonstrates 4 posterior spinal needles with the tips projecting adjacent to the right L3-S1 superior facets. Incidental L2/L3 kyphoplasty. Correlate with intraoperative findings/report.
[2016-08-29] MEDS ORDERED: Sensorcaine 0.25% 10 ML IJ ONE (15:24)
[2016-08-29] MEDS ORDERED: Lactated Ringers IV ONE (15:24)
[2016-08-29] MEDS ORDERED: KEFZOL 1 GM IV ONE (15:24)
[2016-08-29] MEDS ORDERED: Kenalog-40 IM ONE (15:24)
--- NOTE | 2016-08-29 16:36 | XRAY ---
18 seconds of fluoroscopy was used in surgery for a right MBB L2-L5.
== END 2016-08-29 14:25 | disposition home or self-care (01) ==
LOC: SDC-PAIN 11:29
PROVIDERS: ATTEND Pain Medicine Interventional Pain Medicine
DX: M47.816 Spondylosis without myelopathy or radiculopathy, lumbar region (principal); M54.5 Low back pain; S32.000D Wedge compression fracture of unspecified lumbar vertebra, subsequent encounter for fracture with routine healing
CPT/HCPCS: 64493; 64494; 64495; 72020; 77003; J0690; J2704; J3301

== ENCOUNTER 2016-09-05 16:52 | Observation (INO) | payer MEDICARE ==
[2016-09-05] MEDS ORDERED: TYLENOL 325 MG PO PRN (17:03)
[2016-09-05] MEDS ORDERED: NovoLOG Insulin SQ PRN (17:10)
[2016-09-05 19:08] LABS: Bacteria FEW /HPF (NEGATIVE); COMPLETE URINE MICROSCOPIC? YES; Collection Type CLEAN CATCH; Epithelial Cells MODERATE /HPF (FEW)
[2016-09-05 19:25] LABS: Sodium, Urine 62.1 MMOL
--- NOTE | 2016-09-05 21:15 | PCM.HP ---
History of Present Illness - Chief Complaint Chief Complaint: acute renal failure Date: 09/05/16 History of Present Illness: is a 76 year old female. who was recently treated for pneumonia and suffers from dementia. She was at home and developed some blisters on her feet. She was seen by home nursing on and was complaining of cramping and Dr. Mejia her regular provider ordered a BMP with creat 3.45 bun of 50 and K of 5.8. she had on her discharge normal renal function. She was seeing Cecelia Pop today in the office when these lab results came in. The were repeated with similar results. With her dementia her history was somewhat limited and she was noted to be having some diarrhea and it was unclear if she was urinating very often. She stated she was only taking her lasix once a day. She was tired and developed the blisters on her great toes bilateral but was unsure how. - Review of Systems Constitutional: No Fever, No Chills Eyes: No Symptoms Ears, Nose, & Throat: No Symptoms Respiratory: No Cough, No Short Of Breath Cardiac: Edema, No Chest Pain, No Syncope Abdominal/Gastrointestinal: Diarrhea, No Abdominal Pain, No Nausea, No Vomiting Genitourinary Symptoms: No Dysuria Musculoskeletal: No Back Pain, No Neck Pain Skin: Skin Lesions (bilateral great toe blisters), No Rash Neurological: No Dizziness, No Focal Weakness, No Sensory Changes Psychological: No Symptoms Endocrine: No Symptoms Hematologic/Lymphatic: No Symptoms Immunological/Allergic: No Symptoms Medications & Allergies Home Medications: Home Medication List Amlodipine Besylate 10 mg [Norvasc 10 MG] 10 mg PO DAILY 05/31/16 [History Confirmed 09/05/16] Carvedilol [Coreg] 25 mg PO BID 05/31/16 [History Confirmed 09/05/16] Fluoxetine HCl [Prozac] 40 mg PO DAILY 05/31/16 [History Confirmed 09/05/16] Furosemide 40 mg PO BID 05/31/16 [History Confirmed 09/05/16] Gabapentin 300 mg PO TID 05/31/16 [History Confirmed 09/05/16] Losartan Potassium 100 mg PO DAILY 05/31/16 [History Confirmed 09/05/16] Lubiprostone [Amitiza] 8 mcg PO BID 05/31/16 [History Confirmed 09/05/16] Metformin HCl Xr 500 mg [Glucophage XR 500 MG] 500 mg PO BID 05/31/16 [ History Confirmed 09/05/16] Morphine Sulfate [Morphine Sulfate ER] 30 mg PO BID 05/31/16 [History Confirmed 09/05/16] Omeprazole 40 mg PO DAILY 05/31/16 [History Confirmed 09/05/16] Pramipexole Di-HCl 0.5 mg [Mirapex 0.5 MG Tablet] 1 mg PO HS 05/31/16 [ History Confirmed 09/05/16] Sennosides/Docusate Sodium [Senna-Docusate Sodium Tablet] 1 tab PO DAILY [History Confirmed 09/05/16] Cholecalciferol (Vitamin D3) [Vitamin D] 1,000 unit PO DAILY 08/14/16 [ History Confirmed 09/05/16] Cranberry 500 mg PO DAILY 08/14/16 [History Confirmed 09/05/16] Donepezil HCl 10 mg [Aricept 10 MG] 10 mg PO DAILY 08/14/16 [History Confirmed 09/05/16] Hydrocodone Bit/Acetaminophen [[place] 7.5-325 Tablet] 1 tab PO BIDPRN PRN [History Confirmed 09/05/16] Levothyroxine Sodium 75 Mcg [Synthroid 75 Mcg] 75 mcg PO DAILY 08/14/16 [ History Confirmed 09/05/16] Potassium Chloride 10 Meq Tab* [Klor Con 10 MEQ] 10 meq PO BID 08/14/16 [ History Confirmed 09/05/16] Sucralfate 1000 mg/10 ml [Carafate SUSPENSION 1000 MG/10 ML] 10 ml PO QID 08/14/16 [History Confirmed 09/05/16] Vitamin E 400 Units [Vitamin E 400 UNIT SOFTGEL] 400 unit PO DAILY [History Confirmed 09/05/16] Albuterol/Ipratropium 3ml Neb* [DUONEB 0.5-3 MG/3 ml Neb] 3 ml NEB QID PRN # 150 ampul.neb 08/21/16 [Rx Confirmed 09/05/16] Insulin Detemir [Levemir] 10 unit SQ DAILY #0 ml 08/21/16 [Rx Confirmed 09/05/16 ] Allergies/Adverse Reactions: Allergies Allergy/AdvReac Type Severity Reaction Status Date / Time oxycodone Allergy Verified 07/04/16 11:33 paper tape Allergy Uncoded 07/04/16 11:33 - Past Medical History Past Medical History: Yes Neurological History: No Pertinent History ENT History: Cataracts Cardiac History: Angina, Congestive Heart Failure, Hypertension, Other Respiratory History: COPD, Pneumonia, Sleep Apnea Endocrine Medical History: Diabetes Type II Musculoskelatal History: Arthritis GI Medical History: No Pertinent History History: Renal Disease Pyscho-Social History: No Pertinent History Reproductive Disorders: No Pertinent History - Female History Are you now?: No - Past Surgical History Past Surgical History: Yes Neuro Surgical History: No Pertinent History Cardiac History: CABG, Pacemaker, Valve Replacement GI Surgical History: Appendectomy Genitourinary Surgical Hx: No Pertinent History Musculskeletal Surgical Hx: No Pertinent History Female Surgical History: Hysterectomy - Social History Smoking Status: Never smoker Exposure to second hand smoke: No Alcohol: None Drug Use: none - Physical Exam Vital Signs: Vital Signs - 24 hr Temp Pulse Resp BP Pulse Ox 09/05/16 20:28 98.0 F 70 16 143/67 98 09/05/16 17:37 98.1 F 71 18 127/61 98 General Appearance: no apparent distress Neurologic Exam: alert, cooperative, other (walks with walker), No aphasia, No dysarthria Eye Exam: No scleral icterus, No pale conjunctivae Ears, Nose, Throat Exam: moist mucous membranes Neck Exam: non-tender, supple Respiratory Exam: normal breath sounds, lungs clear Cardiovascular Exam: regular rate/rhythm, murmur (3/6 systolic left sternal border) Gastrointestinal/Abdomen Exam: soft, normal bowel sounds, No tenderness, No distention Back Exam: normal inspection, No CVA tenderness Extremity Exam: pedal edema (2+ pitting bilateral), No calf tenderness Skin Exam: other (blister bilateral great toe good perfusion warm) Results - Labs Lab/Micro Results: Lab Results-Last 24 Hours 09/05/16 09/05/16 09/05/16 Range/Units 17:39 18:36 19:07 Ur Collection Type CLEAN CATCH Urine Color YELLOW (YELLOW) Urine Appearance CLEAR (CLEAR) Urine pH 5.0 (5-6) Ur Specific [place] 1.020 (1.005-1.025) Urine Protein NEGATIVE (Negative) Urine Glucose (UA) NEGATIVE (NEGATIVE) mg/dL Urine Ketones NEGATIVE (NEGATIVE) Urine Nitrite NEGATIVE (NEGATIVE) Urine Bilirubin NEGATIVE (NEGATIVE) Urine Urobilinogen 0.2 (0-1) mg/dL Urine WBC (Auto) TRACE (NEGATIVE) Urine RBC (Auto) TRACE-INTACT (0-5) Silviano/ul Urine Microscopic RBC 0-2 (0-2) /HPF Urine Microscopic WBC 2-5 (0-5) /HPF Ur Epithelial Cells MODERATE (FEW) /HPF Amorphous Crystals FEW (NEGATIVE) /HPF Urine Bacteria FEW (NEGATIVE) /HPF Ur Random Creatinine 69.63 (30-125) MG/DL Urine Sodium 62.1 MMOL Stl C. diff Tox B Gene NEGATIVE (NEGATIVE) C.difficile 027-NAP1-B1 PRESUMPTIVE NEGATIVE (NEGATIVE) Specimen Received 09/05/16 1730 - Radiology Impressions Radiology Exams & Impressions: Radiology Procedures Category Date Time Status Renal Ultrasound [KIDNEY] [US] Routine Exams 09/06/16 09:00 Ordered Assessment/Plan (1) Acute renal failure Current Visit: Yes Status: Acute Assessment & Plan: FENA is 2% suggesting intrinsic cause her dementia severely limits the history taking her diarrhea illness check for c. diff negative monitor for worsening she is on tele rule out embolic from intermittent afib Check renal u/s monitor K stop K supplements stop lasix and losartan stop metformin gentle hydration with 0.45 ns at 50 mL/h overnight repeat labs in am monitor I/O relatively asymptomatic currently monitor the stools and the progression of her renal failure and discuss with nephrology in am for inpatient vs outpatient f/u (2) Hyperkalemia Current Visit: Yes Status: Acute Code(s): E87.5 - HYPERKALEMIA (3) Dementia Current Visit: Yes Status: Acute Qualifiers: Dementia type: Alzheimer's disease Code(s): F03.90 - UNSPECIFIED DEMENTIA WITHOUT BEHAVIORAL DISTURBANCE (4) Diabetes type 2, controlled Current Visit: Yes Status: Chronic Qualifiers: Diabetes mellitus complication status: with circulatory complication Diabetes mellitus complication detail: with other circulatory complications Diabetes mellitus adjunct faculty for medical terminology insulin use: with alf use Qualified Code(s) : E11.59 - Type 2 diabetes mellitus with other circulatory complications; Z79.4 - FPC (current) use of insulin Code(s): E11.9 - TYPE 2 DIABETES MELLITUS WITHOUT COMPLICATIONS (5) Chronic pain Current Visit: Yes Status: Chronic Code(s): G89.29 - OTHER CHRONIC PAIN (6) Coronary arteriosclerosis after coronary artery bypass grafting Current Visit: Yes Status: Chronic Code(s): I25.810 - ATHEROSCLEROSIS OF CABG W/O ANGINA PECTORIS
[2016-09-06 04:36] VITALS: O2SAT 96
[2016-09-06 06:07] LABS: BASOPHIL % 0.4 % (0.0-0.4); Eosinophil % 3.3 % (0.00-5.0); Granulocytes % 71.4 % (36.0-66.0); Lymphocytes % 17.8 % (24.0-44.0); Mean Cell Volume 95.4 fl (78-100); Mean Platelet Volume 11.7 fl (6-9.5); Monocytes % 7.1 % (0.0-12.0); Platelet Count 128 K/mm3 (150-450); Red Blood Count 3.29 M/mm3 (4.1-5.4); Red Cell Distribution Width 14.9 % (11.5-14.0); White Blood Count 4.5 K/mm3 (4.0-10.5)
[2016-09-06 06:13] LABS: Mean Corpuscular Hemoglobin 30.6 pg (26-32)
[2016-09-06 06:35] LABS: Carbon Dioxide 25.5 mEq/L (21-32); Potassium 5.1 mEq/L (3.5-5.1)
[2016-09-06 07:20] VITALS: BP 164/76
[2016-09-06] MEDS ORDERED: DUONEB 0.5-3 MG/3 ml Neb IH PRN (07:32)
[2016-09-06] MEDS ORDERED: NORCO 7.5/325 MG TAB PO PRN (07:32)
[2016-09-06] MEDS ORDERED: MEDICATION INTERVENTION MC SCH (08:00)
[2016-09-06 08:16] VITALS: PULSE 69
[2016-09-06] MEDS: Carafate SUSPENSION 1000 MG/10 ML PO SCH ×2 (08:18→11:32)
[2016-09-06 09:20] LABS: Total Cells Counted 100
--- NOTE | 2016-09-06 09:20 | PCM.DCORD ---
- Discharge Discharge Date: 09/06/16 Disposition: Home, Self-Care Condition: Stable Prescriptions: Continue Sennosides/Docusate Sodium [Senna-Docusate Sodium Tablet] 1 tab PO DAILY Fluoxetine HCl [Prozac] 40 mg PO DAILY Pramipexole Di-HCl 0.5 mg [Mirapex 0.5 MG Tablet] 1 mg PO HS Omeprazole 40 mg PO DAILY Morphine Sulfate [Morphine Sulfate ER] 30 mg PO BID Gabapentin 300 mg PO TID Carvedilol [Coreg] 25 mg PO BID Amlodipine Besylate 10 mg [Norvasc 10 MG] 10 mg PO DAILY Lubiprostone [Amitiza] 8 mcg PO BID Hydrocodone Bit/Acetaminophen [[place] 7.5-325 Tablet] 1 tab PO BIDPRN PRN PRN Reason: Pain Donepezil HCl 10 mg [Aricept 10 MG] 10 mg PO DAILY Sucralfate 1000 mg/10 ml [Carafate SUSPENSION 1000 MG/10 ML] 10 ml PO QID Levothyroxine Sodium 75 Mcg [Synthroid 75 Mcg] 75 mcg PO DAILY Cranberry 500 mg PO DAILY Cholecalciferol (Vitamin D3) [Vitamin D] 1,000 unit PO DAILY Vitamin E 400 Units [Vitamin E 400 UNIT SOFTGEL] 400 unit PO DAILY Insulin Detemir [Levemir] 10 unit SQ DAILY #0 ml Albuterol/Ipratropium 3ml Neb* [DUONEB 0.5-3 MG/3 ml Neb] 3 ml NEB QID PRN #150 ampul.neb PRN Reason: cough/wheezing Discontinued Metformin HCl Xr 500 mg [Glucophage XR 500 MG] 500 mg PO BID Losartan Potassium 100 mg PO DAILY Furosemide 40 mg PO BID Potassium Chloride 10 Meq Tab* [Klor Con 10 MEQ] 10 meq PO BID Additional Instructions: Resume visiting nurses home health have CBC and bmp done tomorrow with home health No NSAIDs follow up appointment with Dr. Castro in [place] office Follow up with: NIALL KIM [Primary Care Provider] - 1 Week LUMA CASTRO MD [CONSULTING PHYSICIAN] - 1 Week
[2016-09-06 09:21] LABS: ANISOCYTOSIS 1+
[2016-09-06 09:22] LABS: Platelet Estimate NORMAL (NORMAL)
--- NOTE | 2016-09-06 09:26 | XRAY ---
Indication: Acute renal failure. Two-dimensional renal sonogram performed. Comparison: None Both kidneys normal in reniform shape with normal color perfusion. Right kidney measures 11.1 x 5.0 x 4.9 cm and the left measures 1.7 x 5.7 x 4.6 cm. Left kidney demonstrates a few cysts, largest measuring 4.9 cm midpole. No solid renal mass, hydronephrosis, or perinephric fluid. Cortical medullary differentiation is preserved without cortical thinning. Visualized decompressed urinary bladder unremarkable. Impression: Left renal cysts. Remaining renal sonogram is negative.
--- NOTE | 2016-09-06 09:32 | PCM.DS ---
Discharge Summary Date of Admission: 09/05/16 16:52 Date of Discharge: 09/06/16 Admitting Physician: BALDEV VITALE Primary Care Provider: NIALL KIM Allergies Allergies oxycodone Allergy (Verified 07/04/16 11:33) paper tape Allergy (Uncoded 07/04/16 11:33) Hospital Summary - Hospital Course Hospital Course: Mrs. Lui had pneumonia 3 weeks ago and was treated inpatient for this. She follows with Dr Kim she has had some mild decreased renal function in the past and was previously referred to Dr. Porter but canceled the appointment. She was doing well at home with home nursing but suffers from dementia making the history difficult at times. She developed some diarrhea over the last several days at home and had a routine bmp drawn due to some cramping it looks like which showed creatinine of 3.4 and bun of 50 and k of 5.8. When those results returned she was actually in the office seeing Cecelia Pop for blister to her bilateral great toe medial aspect. She was otherwise asymptomatic she noted she usually only took her lasix once a day and was having good urine output. She was otherwise feeling well and no other skin lesions. She had repeat stat labs that were mildly improved with the K and BUN and continued elevated K. given her difficult historian she was placed in observation and 1/2 NS at 50 ml/h was run overnight. She had good urine output and no other symptoms. She had no further diarrhea and no new skin lesions. Her rhythm remained ventricular paced as is her chronic rhythm. She has mild anemia and thrombocytopenia on her cbc that is new from her previous hospitalization. Her creatinine and bun improved. She was very anxious about being in the hospital and did not want to be here any longer. Renal ultrasound was done without evidence of obstruction and official results pending. A peripheral blood smear, urine eosinophils, and C3 and C4 levels are pending. Her FENa was 2 % concerning for intrinsic cause concerning for HUS possibly from her pneumonia vs acute injury as it looks like losartan may be a new medication for her and she had her diuretic increased during the pneumonia hospitalization 3 weeks ago. Her metformin, potassium, losartan and lasix have been held and stopped on discharge. She very much wishes to go home as she is asymptomatic. With her K back to normal and improvement in labs will discharge with home health nursing to resume and have repeat labs tomorrow. She is being set up for outpatient nephrology follow up as well. Pending results: peripheral blood smear, eosinophil smear, complement C3 and C4 levels, official read of renal ultrasound - Vitals & Intake/Output Vital Signs: Vital Signs Temperature 98.9 F 09/06/16 07:19 Pulse Rate 69 09/06/16 08:13 Respiratory Rate 16 09/06/16 08:13 Blood Pressure 164/76 09/06/16 07:19 O2 Sat by Pulse Oximetry 96 09/06/16 08:13 Intake & Output: Intake & Output 09/03/16 09/04/16 09/05/16 09/06/16 11:59 11:59 11:59 11:59 Intake Total 1142 Output Total 1400 Balance -258 Weight 101.151 kg - Lab Result Diagrams: 09/06/16 05:27 09/06/16 05:27 Lab Results-Last 24 Hrs: Accuchecks Accucheck Value: 178 Lab Results-Last 24 Hours 09/05/16 09/05/16 09/05/16 Range/Units 17:39 18:36 19:07 WBC (4.0-10.5) K/mm3 RBC (4.1-5.4) M/mm3 Hgb (12.0-16.0) gm/dl Hct (35-47) % MCV (78-100) fl MCH (26-32) pg MCHC (32-36) g/dl RDW (11.5-14.0) % Plt Count (150-450) K/mm3 MPV (6-9.5) fl Gran % (36.0-66.0) % Lymphocytes % (24.0-44.0) % Monocytes % (0.0-12.0) % Eosinophils % (0.00-5.0) % Basophils % (0.0-0.4) % Segmented Neutrophils (36.0-66.0) % Lymphocytes (Manual) (24-44) % Monocytes (Manual) (0.0-12.0) % Basophils # (0-0.4) Platelet Estimate (NORMAL) Anisocytosis Sodium (136-145) mEq/L Potassium (3.5-5.1) mEq/L Chloride (98-107) mEq/L Carbon Dioxide (21-32) mEq/L Anion Gap (5-15) MEQ/L BUN (9-20) mg/dL Creatinine (0.55-1.30) mg/dl Estimated GFR ML/MIN Glucose (70-110) MG/DL Calcium (8.5-10.1) mg/dL Ur Collection Type CLEAN CATCH Urine Color YELLOW (YELLOW) Urine Appearance CLEAR (CLEAR) Urine pH 5.0 (5-6) Ur Specific [place] 1.020 (1.005-1.025) Urine Protein NEGATIVE (Negative) Urine Glucose (UA) NEGATIVE (NEGATIVE) mg/dL Urine Ketones NEGATIVE (NEGATIVE) Urine Nitrite NEGATIVE (NEGATIVE) Urine Bilirubin NEGATIVE (NEGATIVE) Urine Urobilinogen 0.2 (0-1) mg/dL Urine WBC (Auto) TRACE (NEGATIVE) Urine RBC (Auto) TRACE-INTACT (0-5) Silviano/ul Urine Microscopic RBC 0-2 (0-2) /HPF Urine Microscopic WBC 2-5 (0-5) /HPF Ur Epithelial Cells MODERATE (FEW) /HPF Amorphous Crystals FEW (NEGATIVE) /HPF Urine Bacteria FEW (NEGATIVE) /HPF Ur Random Creatinine 69.63 (30-125) MG/DL Urine Sodium 62.1 MMOL Stl C. diff Tox B Gene NEGATIVE (NEGATIVE) C.difficile 027-NAP1-B1 PRESUMPTIVE NEGATIVE (NEGATIVE) Specimen Received 09/05/16 1730 09/06/16 09/06/16 Range/Units 05:27 05:27 WBC 4.5 (4.0-10.5) K/mm3 RBC 3.29 L (4.1-5.4) M/mm3 Hgb 10.1 L (12.0-16.0) gm/dl Hct 31.4 L (35-47) % MCV 95.4 (78-100) fl MCH 30.6 (26-32) pg MCHC 32.2 (32-36) g/dl RDW 14.9 H (11.5-14.0) % Plt Count 128 L (150-450) K/mm3 MPV 11.7 H (6-9.5) fl Gran % 71.4 H (36.0-66.0) % Lymphocytes % 17.8 L (24.0-44.0) % Monocytes % 7.1 (0.0-12.0) % Eosinophils % 3.3 (0.00-5.0) % Basophils % 0.4 (0.0-0.4) % Segmented Neutrophils 62 (36.0-66.0) % Lymphocytes (Manual) 30 (24-44) % Monocytes (Manual) 8 (0.0-12.0) % Basophils # 0.02 (0-0.4) Platelet Estimate NORMAL (NORMAL) Anisocytosis 1+ Sodium 144 (136-145) mEq/L Potassium 5.1 (3.5-5.1) mEq/L Chloride 110 H (98-107) mEq/L Carbon Dioxide 25.5 (21-32) mEq/L Anion Gap 14.0 (5-15) MEQ/L BUN 41 H (9-20) mg/dL Creatinine 2.74 H (0.55-1.30) mg/dl Estimated GFR 18 ML/MIN Glucose 121 H (70-110) MG/DL Calcium 8.0 L (8.5-10.1) mg/dL Ur Collection Type Urine Color (YELLOW) Urine Appearance (CLEAR) Urine pH (5-6) Ur Specific [place] (1.005-1.025) Urine Protein (Negative) Urine Glucose (UA) (NEGATIVE) mg/dL Urine Ketones (NEGATIVE) Urine Nitrite (NEGATIVE) Urine Bilirubin (NEGATIVE) Urine Urobilinogen (0-1) mg/dL Urine WBC (Auto) (NEGATIVE) Urine RBC (Auto) (0-5) Silviano/ul Urine Microscopic RBC (0-2) /HPF Urine Microscopic WBC (0-5) /HPF Ur Epithelial Cells (FEW) /HPF Amorphous Crystals (NEGATIVE) /HPF Urine Bacteria (NEGATIVE) /HPF Ur Random Creatinine (30-125) MG/DL Urine Sodium MMOL Stl C. diff Tox B Gene (NEGATIVE) C.difficile 027-NAP1-B1 (NEGATIVE) Specimen Received Micro Results-Entire Visit: Accuchecks Accucheck Value: 178 - Radiology Exams Ordered Rad Exams-Entire Visit: Radiology Procedures Category Date Time Status Renal Ultrasound [KIDNEY] [US] Routine Exams 09/06/16 09:00 Taken - Procedures and Test Procedures and Tests throughout Hospitalization: Therapy Orders & Screens 09/05/16 17:03 EKG STAT Comment: 09/06/16 08:13 Respiratory Nebulizer UD Comment: BREANNA STODDARD Diagnosis: acute renal failure Discharge Exam General Appearance: no apparent distress, obese Neurologic Exam: alert, oriented x 3, cooperative Skin Exam: warm, dry, other (a blister to each medial aspect of great toe without redness or warmth toes warm well perfused.) Eye Exam: pale conjunctivae, No scleral icterus Ears, Nose, Throat Exam: moist mucous membranes Neck Exam: non-tender, supple Respiratory Exam: normal breath sounds, lungs clear Cardiovascular Exam: regular rate/rhythm, murmur (3/6 systolic left sternal border) Gastrointestinal/Abdomen Exam: soft, normal bowel sounds, No tenderness Final Diagnosis/Problem List - Final Discharge Diagnosis/Problem (1) Acute renal failure Current Visit: Yes Status: Acute (2) Hyperkalemia Current Visit: Yes Status: Acute (3) Dementia Current Visit: Yes Status: Acute (4) Diabetes type 2, controlled Current Visit: Yes Status: Chronic (5) Chronic pain Current Visit: Yes Status: Chronic (6) Coronary arteriosclerosis after coronary artery bypass grafting Current Visit: Yes Status: Chronic - Discharge Discharge Date: 09/06/16 Disposition: Home, Self-Care Condition: Stable Prescriptions: Continue Sennosides/Docusate Sodium [Senna-Docusate Sodium Tablet] 1 tab PO DAILY Fluoxetine HCl [Prozac] 40 mg PO DAILY Pramipexole Di-HCl 0.5 mg [Mirapex 0.5 MG Tablet] 1 mg PO HS Omeprazole 40 mg PO DAILY Morphine Sulfate [Morphine Sulfate ER] 30 mg PO BID Gabapentin 300 mg PO TID Carvedilol [Coreg] 25 mg PO BID Amlodipine Besylate 10 mg [Norvasc 10 MG] 10 mg PO DAILY Lubiprostone [Amitiza] 8 mcg PO BID Hydrocodone Bit/Acetaminophen [[place] [employer] 7.5-325 Tablet] 1 tab PO BIDPRN PRN PRN Reason: Pain Donepezil HCl 10 mg [Aricept 10 MG] 10 mg PO DAILY Sucralfate 1000 mg/10 ml [Carafate SUSPENSION 1000 MG/10 ML] 10 ml PO QID Levothyroxine Sodium 75 Mcg [Synthroid 75 Mcg] 75 mcg PO DAILY Cranberry 500 mg PO DAILY Cholecalciferol (Vitamin D3) [Vitamin D] 1,000 unit PO DAILY Vitamin E 400 Units [Vitamin E 400 UNIT SOFTGEL] 400 unit PO DAILY Insulin Detemir [Levemir] 10 unit SQ DAILY #0 ml Albuterol/Ipratropium 3ml Neb* [DUONEB 0.5-3 MG/3 ml Neb] 3 ml NEB QID PRN #150 ampul.neb PRN Reason: cough/wheezing Discontinued Metformin HCl Xr 500 mg [Glucophage XR 500 MG] 500 mg PO BID Losartan Potassium 100 mg PO DAILY Furosemide 40 mg PO BID Potassium Chloride 10 Meq Tab* [Klor Con 10 MEQ] 10 meq PO BID Additional Instructions: Resume visiting nurses home health have CBC and bmp done tomorrow with home health No NSAIDs follow up appointment with Dr. Porter in [place] office Follow up with: LUMA PORTER MD [CONSULTING PHYSICIAN] - 1 Week NIALL KIM [Primary Care Provider] - 1 Week
[2016-09-06] MEDS ORDERED: SYNTHROID 75 MCG PO SCH (10:00)
[2016-09-06] MEDS ORDERED: Lantus Insulin SQ SCH (10:00)
[2016-09-06] MEDS ORDERED: NORVASC 5 MG PO SCH (10:00)
[2016-09-06] MEDS ORDERED: Senokot-S Tablet PO SCH (10:00)
[2016-09-06] MEDS ORDERED: NON-FORMULARY ITEM (Insulin Detemir [Levemir] 10 UNIT) SQ SCH (10:00)
[2016-09-06] MEDS ORDERED: Protonix 40MG Tablet PO SCH (10:00)
[2016-09-06] MEDS ORDERED: Prozac 20 MG PO SCH (10:00)
[2016-09-06] MEDS ORDERED: Ms Contin 15 MG PO SCH (10:00)
[2016-09-06] MEDS ORDERED: NEURONTIN 300 MG PO SCH (10:00)
[2016-09-06] MEDS ORDERED: MS CONTIN 30 MG PO SCH (10:00)
[2016-09-06] MEDS ORDERED: COREG 12.5 MG PO SCH (10:00)
[2016-09-06] MEDS ORDERED: Aricept 10 MG PO SCH (10:00)
[2016-09-06] MEDS ORDERED: Mirapex 0.5 MG Tablet PO SCH (22:00)
== END 2016-09-06 11:40 | disposition home health service (06) ==
LOC: MED SURG 16:52
PROVIDERS: ADMIT Family Medicine; ATTEND Family Medicine
DX: N17.9 Acute kidney failure, unspecified (principal); E87.5 Hyperkalemia; E11.9 Type 2 diabetes mellitus without complications; G30.9 Alzheimer's disease, unspecified; F02.80 Dementia in other diseases classified elsewhere, unspecified severity, without behavioral disturbance, psychotic disturbance, mood disturbance, and anxiety; G89.29 Other chronic pain; F45.42 Pain disorder with related psychological factors; I25.810 Atherosclerosis of coronary artery bypass graft(s) without angina pectoris; Z79.4 Long term (current) use of insulin; I50.9 Heart failure, unspecified; I10 Essential (primary) hypertension; J44.9 Chronic obstructive pulmonary disease, unspecified; G47.30 Sleep apnea, unspecified; M19.90 Unspecified osteoarthritis, unspecified site
CPT/HCPCS: 36415; 76770; 80048; 81000; 82570; 82962; 84300; 85025; 85060; 86160; 87205; 87493; 93005; 94760; G0378; A9270-GY

== ENCOUNTER 2016-09-09 22:26 | Observation (INO) | payer MEDICARE ==
[2016-09-09] MEDS ORDERED: Sodium Chloride 0.9% 1000 ML 1,000 ML IV SCH (23:45)
--- NOTE | 2016-09-09 23:49 | ERPHSYRPT ---
- History of Present Illness Time Seen by Provider: 09/09/16 23:40 Historian: patient Exam Limitations: clinical condition Patient Subjective Stated Complaint: "i was released from here a couple days ago (09/06/16). I think that i was released too soon. I just feel bad. my stomach has been bothering me. I have had the diarrhea since I left here" Triage Nursing Assessment: aox3, breathing easy unlabored, skin pale warm dry, steady slow gait from wc to bed Physician History: PATIENT RECENTLY DISCHARGED FROM THE HOSPITAL FOR TREATMENT OF PNEUMONIA, RENAL INSUFFICIENCY AND HYPERKALEMIA. HAS NOT FELT WELL THE PAST FEW DAYS, AND HAD FREQUENT DIARRHEA 15 TO 20 EPISODES DAILY. HAS ASSOCIATED NAUSEA, DENIES FEVER, CHILLS OR EMESIS. Timing/Duration: day(s) Activities at Onset: none Quality: cramping Abdominal Pain Onset Location: generalized abdomen Pain Radiation: no radiation Severity of Pain-Max: mild Severity of Pain-Current: mild Modifying Factors: Improves With: defecating Associated Symptoms: loss of appetite, nausea, weakness, other (WATERY DIARRHEA) Previous symptoms: same symptoms as today Allergies/Adverse Reactions: oxycodone Allergy (Verified 09/09/16 23:01) paper tape Allergy (Uncoded 09/09/16 23:01) Home Medications: Amlodipine Besylate 10 mg [Norvasc 10 MG] 10 mg PO DAILY 05/31/16 [History] Carvedilol [Coreg] 25 mg PO BID 05/31/16 [History] Fluoxetine HCl [Prozac] 40 mg PO DAILY 05/31/16 [History] Gabapentin 300 mg PO TID 05/31/16 [History] Lubiprostone [Amitiza] 8 mcg PO BID 05/31/16 [History] Morphine Sulfate [Morphine Sulfate ER] 30 mg PO BID 05/31/16 [History] Omeprazole 40 mg PO DAILY 05/31/16 [History] Pramipexole Di-HCl 0.5 mg [Mirapex 0.5 MG Tablet] 1 mg PO HS 05/31/16 [ History] Sennosides/Docusate Sodium [Senna-Docusate Sodium Tablet] 1 tab PO DAILY [History] Cholecalciferol (Vitamin D3) [Vitamin D] 1,000 unit PO DAILY 08/14/16 [ History] Cranberry 500 mg PO DAILY 08/14/16 [History] Donepezil HCl 10 mg [Aricept 10 MG] 10 mg PO DAILY 08/14/16 [History] Hydrocodone Bit/Acetaminophen [Murphy 7.5-325 Tablet] 1 tab PO BIDPRN PRN [History] Levothyroxine Sodium 75 Mcg [Synthroid 75 Mcg] 75 mcg PO DAILY 08/14/16 [ History] Sucralfate 1000 mg/10 ml [Carafate SUSPENSION 1000 MG/10 ML] 10 ml PO QID 08/14/16 [History] Vitamin E 400 Units [Vitamin E 400 UNIT SOFTGEL] 400 unit PO DAILY [History] Hx Tetanus, Diphtheria Vaccination/Date Given: Yes - Review of Systems Constitutional: Weakness, No Fever, No Chills Eyes: No Symptoms Ears, Nose, & Throat: No Symptoms Respiratory: No Symptoms, No Cough, No Dyspnea Cardiac: No Symptoms, No Chest Pain, No Edema, No Syncope Abdominal/Gastrointestinal: Abdominal Pain, No Nausea, No Vomiting, No Diarrhea Genitourinary Symptoms: No Symptoms, No Dysuria Musculoskeletal: No Symptoms, No Back Pain, No Neck Pain Skin: No Symptoms, No Rash Neurological: No Symptoms, Focal Weakness, No Dizziness, No Sensory Changes Psychological: No Symptoms Endocrine: No Symptoms All Other Systems: Reviewed and Negative - Past Medical History Pertinent Past Medical History: Yes Neurological History: No Pertinent History ENT History: Cataracts Cardiac History: Angina, Congestive Heart Failure, Hypertension, Other Respiratory History: COPD, Pneumonia, Sleep Apnea Endocrine Medical History: Diabetes Type II Musculoskeletal History: Arthritis GI Medical History: No Pertinent History History: Renal Disease Psycho-Social History: No Pertinent History Female Reproductive Disorders: No Pertinent History - Past Surgical History Past Surgical History: Yes Neuro Surgical History: No Pertinent History Cardiac: CABG, Pacemaker, Valve Replacement Gastrointestinal: Appendectomy Genitourinary: No Pertinent History Musculoskeletal: No Pertinent History Female Surgical History: Hysterectomy - Social History Smoking Status: Never smoker Exposure to second hand smoke: No Drug Use: none - Nursing Vital Signs Nursing Vital Signs: Initial Vital Signs Temperature 98.1 F Temperature Source Oral Pulse Rate 84 Respiratory Rate 16 Blood Pressure [Right Arm] 142/88 Pain Intensity 6 - Physical Exam General Appearance: no apparent distress, alert Eye Exam: PERRL/EOMI, eyes nml inspection Ears, Nose, Throat Exam: normal ENT inspection, pharynx normal, moist mucous membranes Neck Exam: normal inspection, non-tender, supple, full range of motion Respiratory Exam: normal breath sounds, lungs clear, No respiratory distress Cardiovascular Exam: regular rate/rhythm, normal heart sounds Gastrointestinal/Abdomen Exam: soft, normal bowel sounds, tenderness ( EPIGASTRIC TENDERNESS), No mass Back Exam: normal inspection, normal range of motion, No CVA tenderness, No vertebral tenderness Extremity Exam: normal inspection, normal range of motion, pelvis stable Neurologic Exam: alert, oriented x 3, cooperative, normal mood/affect, nml cerebellar function, sensation nml, No motor deficits Skin Exam: normal color, warm, dry SpO2: 96 Oxygen Delivery: Room Air Ordered Tests: Active Orders 24 hr Category Date Time Status Up With Assistance ROUTINE Activity 09/10/16 02:01 Ordered Accucheck ACHS Care 09/10/16 02:01 Ordered Admission/Status Order ROUTINE Care 09/10/16 02:01 Ordered Call Admit Doctor for Orders ON ADMISSION Care 09/10/16 02:03 Ordered Clean Catch Urine Specimen STAT Care 09/09/16 23:42 Active Code Status Order ROUTINE Care 09/10/16 02:01 Ordered IV Care Q6H Care 09/10/16 02:01 Ordered IV Insertion STAT Care 09/09/16 23:42 Active Intake and Output Q12H Care 09/10/16 02:01 Ordered Telemetry ROUTINE Care 09/10/16 02:01 Ordered Vital Signs Q4H Care 09/10/16 02:01 Ordered Clear Liquid Diet 09/10/16 Breakfast Ordered AMYLASE Stat Lab 09/09/16 23:47 Completed BLOOD CULTURE Stat Lab 09/09/16 23:43 Received CBC W DIFF Stat Lab 09/09/16 23:47 Completed CMP Stat Lab 09/09/16 23:47 Completed LIPASE Stat Lab 09/09/16 23:47 Completed Oxygen NASAL CANNULA 2 lpm RT 09/10/16 02:01 Ordered Transfer Order Routine Transfer 09/10/16 02:00 Ordered Medication Summary Generic Name Dose Route Start Last Admin Trade Name Freq PRN Reason Stop Dose Admin Sodium Chloride 1,000 mls @ 250 mls/hr 09/09/16 23:45 09/09/16 23:58 Sodium Chloride 0.9% 1000 Ml IV 10/09/16 23:44 250 mls/hr .Q4H DENA Administration Potassium Chloride 100 mls @ 50 mls/hr 09/10/16 01:06 09/10/16 02:04 Potassium Chloride 20 Meq In Water 100ml IV 09/10/16 03:05 50 mls/hr STAT ONE Administration Discontinued Medications Generic Name Dose Route Start Last Admin Trade Name Yadira PRN Reason Stop Dose Admin Ceftriaxone Sodium/Dextrose 50 mls @ 100 mls/hr 09/10/16 01:26 09/10/16 01:40 Rocephin 1 Gm-D5w 50 Ml Bag IV 09/10/16 01:55 100 mls/hr STAT ONE Administration Ceftriaxone Sodium/Dextrose Confirm 09/10/16 01:33 Rocephin 1 Gm-D5w 50 Ml Bag Administered 09/10/16 01:34 Dose 50 mls @ ud IV .STK-MED ONE Potassium Chloride Confirm 09/10/16 01:33 Potassium Chloride 20 Meq In Water 100ml Administered 09/10/16 01:34 Dose 100 mls @ ud IV .STK-MED ONE Potassium Chloride Confirm 09/10/16 01:52 Potassium Chloride 20 Meq In Water 100ml Administered 09/10/16 01:53 Dose 100 mls @ ud IV .STK-MED ONE Lab/Rad Data: Laboratory Result Diagrams 09/09/16 23:47 09/09/16 23:47 Laboratory Results 09/09/16 09/09/16 09/09/16 Range/Units 23:47 23:47 00:46 WBC 6.2 (4.0-10.5) K/mm3 RBC 3.18 L (4.1-5.4) M/mm3 Hgb 9.7 L (12.0-16.0) gm/dl Hct 30.0 L (35-47) % MCV 94.3 (78-100) fl MCH 30.5 (26-32) pg MCHC 32.3 (32-36) g/dl RDW 14.7 H (11.5-14.0) % Plt Count 111 L (150-450) K/mm3 MPV 12.2 H (6-9.5) fl Gran % 76.1 H (36.0-66.0) % Lymphocytes % 13.5 L (24.0-44.0) % Monocytes % 8.8 (0.0-12.0) % Eosinophils % 1.3 (0.00-5.0) % Basophils % 0.3 (0.0-0.4) % Basophils # 0.02 (0-0.4) Sodium 143 (136-145) mEq/L Potassium 3.2 L (3.5-5.1) mEq/L Chloride 107 (98-107) mEq/L Carbon Dioxide 22.5 (21-32) mEq/L Anion Gap 16.6 H (5-15) MEQ/L BUN 20 (9-20) mg/dL Creatinine 1.80 H (0.55-1.30) mg/dl Estimated GFR 29 ML/MIN Glucose 119 H (70-110) MG/DL Calcium 8.4 L (8.5-10.1) mg/dL Total Bilirubin 0.9 (0.2-1.0) mg/dL AST 13 L (15-37) U/L ALT 6 L (12-78) U/L Alkaline Phosphatase 67 (46-116) U/L Serum Total Protein 6.8 (6.4-8.2) gm/dL Albumin 2.9 L (3.4-5.0) g/dL Amylase 20 L (25-115) U/L Lipase 106 (73-393) U/L Ur Collection Type CLEAN CATCH Urine Color ORANGE (YELLOW) Urine Appearance SLIGHTLY CLOUDY (CLEAR) Urine pH 5.0 (5-6) Ur Specific [place] 1.020 (1.005-1.025) Urine Protein 100 (Negative) Urine Glucose (UA) 100 (NEGATIVE) mg/dL Urine Ketones TRACE (NEGATIVE) Urine Nitrite POSITIVE (NEGATIVE) Urine Bilirubin NEGATIVE (NEGATIVE) Urine Urobilinogen 1 (0-1) mg/dL Urine WBC (Auto) SMALL (NEGATIVE) Urine RBC (Auto) TRACE-LYSED (0-5) Silviano/ul Urine Microscopic RBC 5-10 (0-2) /HPF Urine Microscopic WBC 25-50 (0-5) /HPF Ur Epithelial Cells MANY (FEW) /HPF Urine Bacteria MODERATE (NEGATIVE) /HPF Specimen Received 09/10/16 0045 - Progress Progress Note: 09/10/16 00:07 PATIENT GIVEN NORMAL SALINE 250ML/HR, KCL 20MEQ JOANNA FOR LOW POTASSIUM 09/10/16 02:13 - Departure Time of Disposition: 02:15 Departure Disposition: Observation Clinical Impression: ACUTE DIARRHEA, URINARY TRACT INFECTION Condition: Stable Critical Care Time: No
[2016-09-09 23:50] LABS: BASOPHIL % 0.3 % (0.0-0.4); Eosinophil % 1.3 % (0.00-5.0); Granulocytes % 76.1 % (36.0-66.0); Lymphocytes % 13.5 % (24.0-44.0); Mean Cell Volume 94.3 fl (78-100); Mean Corpuscular Hemoglobin 30.5 pg (26-32); Mean Platelet Volume 12.2 fl (6-9.5); Monocytes % 8.8 % (0.0-12.0); Platelet Count 111 K/mm3 (150-450); Red Blood Count 3.18 M/mm3 (4.1-5.4); Red Cell Distribution Width 14.7 % (11.5-14.0); White Blood Count 6.2 K/mm3 (4.0-10.5)
[2016-09-09] MEDS ORDERED: Sodium Chloride 0.9% 1000 ML 1,000 ML ONE (23:52)
[2016-09-10 00:18] LABS: ALBUMIN 2.9 g/dL (3.4-5.0); ANION GAP 16.6 MEQ/L (5-15); BILIRUBIN,TOTAL 0.9 mg/dL (0.2-1.0); Carbon Dioxide 22.5 mEq/L (21-32); Potassium 3.2 mEq/L (3.5-5.1); Total Protein 6.8 gm/dL (6.4-8.2)
[2016-09-10] MEDS ORDERED: POTASSIUM CHLORIDE 20 mEq IN WATER 100ML 100 ML IV ONE ×3 (01:06→01:52)
[2016-09-10 01:22] LABS: Collection Type CLEAN CATCH
[2016-09-10 01:23] LABS: Bacteria MODERATE /HPF (NEGATIVE); COMPLETE URINE MICROSCOPIC? YES; Epithelial Cells MANY /HPF (FEW); WBC 25-50 /HPF (0-5)
[2016-09-10] MEDS ORDERED: ROCEPHIN 1 Gm-D5w 50 ml Bag** 50 ML IV ONE ×2 (01:26→01:33)
[2016-09-10] MEDS ORDERED: TYLENOL 325 MG PO PRN (02:01)
[2016-09-10] MEDS ORDERED: NORCO 7.5/325 MG TAB PO PRN (03:39)
[2016-09-10] MEDS: MS CONTIN 30 MG PO SCH ×3 (03:50→21:47)
[2016-09-10] MEDS: Sodium Chloride 0.9% 1000 ML 1,000 ML IV SCH ×2 (07:38→23:04)
[2016-09-10] MEDS ORDERED: NovoLOG Insulin SQ PRN (08:46)
[2016-09-10] MEDS ORDERED: Magnesium Sulfate 1 GM/2 ML VIAL IV ONE (09:15)
[2016-09-10] MEDS ORDERED: MEDICATION INTERVENTION MC PRN (09:53)
[2016-09-10] MEDS ORDERED: Coreg 6.25 MG PO SCH (10:00)
[2016-09-10] MEDS ORDERED: NORVASC 5 MG PO SCH (10:00)
[2016-09-10] MEDS ORDERED: CRANBERRY 500 MG PO SCH (10:00)
--- NOTE | 2016-09-10 10:07 | HP ---
HISTORY OF PRESENT ILLNESS: This is a 76 y/o woman who presented to the Emergency Department last night. She has a complex past medical history. Last month, she was in the hospital for pneumonia and then acute renal failure. The patient was most recently discharged on 09/06/16. When she presented to the Emergency Department, she told them that she had had diarrhea 15-20 times a day. She told me that the diarrhea started 2 days ago. She has had 1 stool here according to the nurse's notes. She states the diarrhea has been better. She states her stomach has been hurting for the past 2 days and that she hasn't had much to eat at home, but did have some macaroni and cheese yesterday. She reports she did vomit some oatmeal after eating and has had some nausea. She reports she just hasn't felt well and hasn't felt like eating. She denies any fever. She hasn't had any blood in her stool. She had home health care at home after her hospitalization for pneumonia. Her insurance company denied a rehab stay. REVIEW OF SYSTEMS: She denies chest pain. She reports she has had a little bit of dyspnea. She reports some cough that is nonproductive and a little bit of swelling in her lower extremities. She denies any dysuria. She reports she has had urinary frequency. She continues to have chronic lower back pain. She recently received some injections in her back after hospitalization for pneumonia and states that those didn't seem to help much. 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 PAST SURGICAL HISTORY: Appendectomy, back surgery X [address] Lanier, coronary artery bypass graft in 2009 with the annuloplasty ring by Dr. Luna at [place], also tricuspid and mitral valve surgery, pacemaker placed in 2012, cholecystectomy, hysterectomy, right ankle surgery, both ovaries have been removed, colonoscopy in 2014 that was normal. SOCIAL HISTORY: She is and lives with her . No tobacco or alcohol use. FAMILY HISTORY: Her sister has Alzheimer's. Her mother had colon cancer. Her father had a stroke. CURRENT MEDICATIONS: Albuterol 3 ml nebulized qid PRN, amlodipine 10 mg daily, Coreg 25 mg PO bid, vitamin D 1000 units PO daily, cranberry 500 mg PO daily, Aricept 10 mg daily, fluoxetine 40 mg daily, gabapentin 300 mg PO tid, hydrocodone with acetaminophen 1 tab PO bid PRN, Levemir 10 units subq daily, levothyroxine 75 mcg PO daily, Amitiza 8 mcg PO bid, morphine 30 mg PO bid, omeprazole 40 mg daily, Mirapex 1 mg PO q HS, senna 1 tab PO daily, Carafate 10 ml PO qid, vitamin E 400 units PO daily. ALLERGIES: OXYCONTIN. PHYSICAL EXAMINATION: VITAL SIGNS: Temperature current 98.8, temperature maximum 98.8, heart rate 75-87, respiratory rate 16-20, O2 saturation 93-96% on room air, BP 136-155/66-74, weight 100.3 Kg. GENERAL: The patient is a pleasant lady lying in bed in no acute distress. She is alert and talkative. CVS: She has an irregularly irregular rhythm, normal rate. LUNGS: Clear to auscultation bilaterally. No crackles or wheezes. ABDOMEN: Soft, mild subjective tenderness throughout. No guarding. No rigidity. Normal bowel sounds. EXTREMITIES: Trace edema of her right lower extremity. No clubbing or cyanosis of either foot and no edema of her left foot. SKIN: Warm, dry, and intact. LABORATORY DATA: WBC was 6.2, Hgb 9.7, platelet count 111,000. Potassium was 3.2 on admission. Repeat potassium 3.6. Creatinine 1.8, albumin 2.9. UA was 25-50 WBC, many epithelial cells, and moderate bacteria. Blood cultures are in lab. I ordered a urine culture. ASSESSMENT AND PLAN: 1. DIARRHEA. Will check a stool culture and Clostridium difficile again. It was negative at her last hospitalization and check for ova and parasites. Will continue clear liquid diet. 2. HYPOKALEMIA. This was resolved with replacement and her potassium is normal. Will check a magnesium level also. 3. CHRONIC KIDNEY DISEASE. She is to see the molding line operator as an outpatient. 4. DIABETES MELLITUS TYPE 2. Will continue with a low-dose sliding scale of NovoLog and hold her Levemir as she is not eating as much right now. 5. HYPERTENSION. Will continue with the Coreg and amlodipine. 6. HISTORY OF DEMENTIA. Will continue with her home medications. 7. CHRONIC BACK PAIN. Will continue with her home medication.
[2016-09-10] MEDS: COREG 12.5 MG PO SCH ×2 (10:39→21:47)
[2016-09-10] MEDS: NORVASC 5 MG PO SCH (10:39)
[2016-09-10] MEDS: Prozac 20 MG PO SCH (10:39)
[2016-09-10] MEDS: SYNTHROID 75 MCG PO SCH (10:40)
[2016-09-10] MEDS: NEURONTIN 300 MG PO SCH ×3 (10:40→21:48)
[2016-09-10] MEDS: Protonix 40MG Tablet PO SCH (10:40)
[2016-09-10] MEDS: Aricept 10 MG PO SCH (10:40)
[2016-09-10] MEDS: Carafate SUSPENSION 1000 MG/10 ML PO SCH ×4 (10:41→21:48)
[2016-09-10] MEDS: Vitamin E 400 UNIT SOFTGEL PO SCH (10:41)
[2016-09-10] MEDS: VITAMIN D PO SCH (10:41)
[2016-09-10] MEDS: Magnesium 1 Gm / 100 Ml D5W*** 100 ML IV SCH ×2 (10:48→12:34)
[2016-09-10] MEDS: Phenergan 25 MG INJ IV PRN ×3 (10:52→21:28)
[2016-09-10] MEDS: ENOXAPARIN SODIUM SQ SCH (11:50)
[2016-09-10] MEDS: Mirapex 0.5 MG Tablet PO SCH (21:47)
[2016-09-10] MEDS ORDERED: ROCEPHIN 1 Gm-D5w 50 ml Bag** 50 ML IV SCH (22:00)
[2016-09-11] MEDS: Phenergan 25 MG INJ IV PRN ×3 (03:46→18:18)
[2016-09-11 05:58] LABS: Mean Cell Volume 95.7 fl (78-100); Platelet Count 125 K/mm3 (150-450); Red Cell Distribution Width 14.7 % (11.5-14.0); White Blood Count 5.3 K/mm3 (4.0-10.5)
[2016-09-11 06:08] LABS: Mean Corpuscular Hemoglobin 30.3 pg (26-32)
[2016-09-11] MEDS: DUONEB 0.5-3 MG/3 ml Neb IH PRN ×2 (08:43→11:21)
--- NOTE | 2016-09-11 08:43 | PCM.NOTE ---
Date and Time: 09/11/16 0837 Subjective Assessment: Chemistry machine is down so BMP is not back yet. Respiratory therapy reported she went down to 83 % on room air this AM. She has duonebs ordered but has not received one yet. Patient reports she was feeling ok. Her stomach does not hurt. She reports vomiting yesterday evening and no more diarrhea. - Review of Systems Constitutional: Fatigue Eyes: No Symptoms Ears, Nose, & Throat: No Symptoms Respiratory: Cough Cardiac: No Symptoms Abdominal/Gastrointestinal: No Symptoms Genitourinary Symptoms: No Symptoms Musculoskeletal: No Symptoms Skin: No Symptoms Objective Exam General Appearance: no apparent distress, alert, obese Neurologic Exam: alert, cooperative, normal mood/affect Skin Exam: normal color, warm, dry, No rash Respiratory Exam: other (few scattered wheezes, no crackles, equal breath sounds , no retractions.) Cardiovascular Exam: other (irregularly irregular rhythm; II/ systolic ejection murmur) Gastrointestinal/Abdomen Exam: soft, normal bowel sounds, No tenderness, No distention, No mass Extremity Exam: other (trace edema bilat, no c/c) OBJECTIVE DATA Vital Signs: Vital Signs - 24 hr Temp Pulse Resp BP Pulse Ox 09/11/16 08:25 72 16 83 L 09/11/16 07:26 98.9 F 75 17 143/64 90 L 09/11/16 04:00 99.2 F 71 24 139/69 89 L 09/10/16 23:43 99.3 F 77 20 169/83 96 09/10/16 20:00 99.3 F 77 18 149/70 96 09/10/16 19:30 74 18 93 L 09/10/16 16:00 98.5 F 72 17 166/81 93 L 09/10/16 12:00 99.0 F 83 18 155/69 94 L Oxygen-Last 24 hours O2 Percentage 2 Liters = 28% O2 Percentage 2 Liters = 28% O2 Percentage 2 Liters = 28% O2 Percentage 2 Liters = 28% O2 Percentage 2 Liters = 28% O2 Percentage 2 Liters = 28% Pain Assessment - Last Documented Pain Intensity 3 Pain Scale Used 0-10 Pain Scale Intake and Output: Intake & Output 09/09/16 09/10/16 09/11/16 09/12/16 06:59 06:59 06:59 06:59 Intake Total 200 3011 Output Total 400 2000 Balance -200 1011 Weight 100.335 kg 100.335 kg 101.151 kg Lab Results: Accuchecks Date 09/10/16 Date 09/10/16 Time 16:30 Time 11:30 Accucheck Value: 154 Accucheck Value: 146 Lab Results-Last 24 Hours 09/10/16 09/11/16 Range/Units 06:00 05:38 WBC 5.3 (4.0-10.5) K/mm3 RBC 2.80 L (4.1-5.4) M/mm3 Hgb 8.5 L (12.0-16.0) gm/dl Hct 26.8 L (35-47) % MCV 95.7 (78-100) fl MCH 30.3 (26-32) pg MCHC 31.7 L (32-36) g/dl RDW 14.7 H (11.5-14.0) % Plt Count 125 L (150-450) K/mm3 MPV 12.0 H (6-9.5) fl Magnesium 1.4 L (1.8-2.4) mg/dL Radiology Exams: Radiology Procedures Category Date Time Status CHEST 2 VIEWS (PA AND LAT) Routine Exams 09/11/16 08:35 Ordered ECHO W/2D AND DOPPLER [US] Routine Exams 09/11/16 08:37 Ordered Multi-Disciplinary Progress Notes: Multi-Disciplinary Progress Notes 09/10/16 15:33 Case Management Note by Lesa Alvarez CALL TO [facility] TO REPORT PT HERE. SPOKE WITH RADHA. Initialized on 09/10/16 15:33 - END OF NOTE 09/10/16 12:30 (created 09/10/16 15:29) Case Management Note by Lesa Alvarez DISCHARGE PLAN REVIEWED, LIVES AT HOME WITH . PROVIDES SELF CARE, INDEPENDENT WITH MOST ADL'S. REPORTS THAT [facility] BEEN HELPING WITH SHOWER. USES [facility] FOR ADDNL SUPPORT IN THE HOME, ALSO, HAS [facility] FOR HOME OXYGEN NEEDS. DECLINED ADDNL NEEDS AT PRESENT. PLAN TO RETURN HOME TO PRE EPISODIC LEVEL OF FNX. Initialized on 09/10/16 15:29 - END OF NOTE Assessment/Plan (1) Diarrhea Current Visit: Yes Status: Resolved Assessment & Plan: Resolved. Repeat c. diff was neg, stool culture and ova and parasites ordered. Code(s): R19.7 - DIARRHEA, UNSPECIFIED (2) Chronic kidney disease (CKD) stage G3a/A3, moderately decreased glomerular filtration rate (GFR) between 45-59 mL/min/1.73 square meter and albuminuria creatinine ratio greater than 300 mg/g Current Visit: Yes Status: Acute Assessment & Plan: Awaiting BMP from today. Stop fluids. Code(s): N18.3 - CHRONIC KIDNEY DISEASE, STAGE 3 (MODERATE) (3) Diabetes type 2, controlled Current Visit: No Status: Chronic Qualifiers: Diabetes mellitus complication status: without complication Diabetes mellitus long term care administrator insulin use: with long term care administrator use Qualified Code(s): E11.9 - Type 2 diabetes mellitus without complications; Z79.4 - half-way (current) use of insulin Assessment & Plan: Continue novolog low dose sliding scale. Code(s): E11.9 - TYPE 2 DIABETES MELLITUS WITHOUT COMPLICATIONS (4) Hypoxia Current Visit: Yes Status: Acute Assessment & Plan: Continue oxygen. Duonebs ordered. Check BNP and cardiac Echo. Stop IV fluids. Once labs are back including BMP and BNP, may consider a dose of lasix. Code(s): R09.02 - HYPOXEMIA (5) COPD (chronic obstructive pulmonary disease) Current Visit: Yes Status: Acute Assessment & Plan: Patient wears oxygen at home so best not to try to wean to room air. Check chest X-ray.
--- NOTE | 2016-09-11 09:17 | XRAY ---
Indication: Hypoxia. Comparison: August 14, 2016. Portable chest again demonstrates COPD and cardiomegaly with previous cardiac valvular replacement surgery and left-sided dual-lead pacemaker. There is now vascular congestion, bilateral interstitial edema, and small bibasilar effusions favoring cardiac decompensation. Impression: New radiographic features favoring cardiac decompensation. Superposed pneumonia not completely excluded.
[2016-09-11] MEDS: MS CONTIN 30 MG PO SCH ×2 (09:47→21:25)
[2016-09-11] MEDS: SYNTHROID 75 MCG PO SCH (09:47)
[2016-09-11] MEDS: Aricept 10 MG PO SCH (09:47)
[2016-09-11] MEDS: COREG 12.5 MG PO SCH ×2 (09:47→21:25)
[2016-09-11] MEDS: NORVASC 5 MG PO SCH (09:47)
[2016-09-11] MEDS: Protonix 40MG Tablet PO SCH (09:47)
[2016-09-11] MEDS: NEURONTIN 300 MG PO SCH ×3 (09:47→21:25)
[2016-09-11] MEDS: Prozac 20 MG PO SCH (09:47)
[2016-09-11] MEDS: ENOXAPARIN SODIUM SQ SCH (09:47)
[2016-09-11] MEDS: VITAMIN D PO SCH (09:48)
[2016-09-11] MEDS: Vitamin E 400 UNIT SOFTGEL PO SCH (09:49)
[2016-09-11] MEDS: Carafate SUSPENSION 1000 MG/10 ML PO SCH ×4 (09:51→21:28)
[2016-09-11 10:10] LABS: Total Cells Counted 100
[2016-09-11 10:11] LABS: ANISOCYTOSIS 1+; Platelet Estimate NORMAL (NORMAL); Poikilocytosis 1+
[2016-09-11] MEDS ORDERED: Lasix 20 MG/2 ML IV ONE (17:15)
[2016-09-11] MEDS: Mirapex 0.5 MG Tablet PO SCH (21:25)
[2016-09-12 05:48] LABS: BASOPHIL % 0.6 % (0.0-0.4); Eosinophil % 3.5 % (0.00-5.0); Granulocytes % 76.2 % (36.0-66.0); Lymphocytes % 11.6 % (24.0-44.0); Mean Corpuscular Hemoglobin 30.2 pg (26-32); Mean Platelet Volume 12.3 fl (6-9.5); Monocytes % 8.1 % (0.0-12.0); Platelet Count 133 K/mm3 (150-450); Red Blood Count 2.98 M/mm3 (4.1-5.4); Red Cell Distribution Width 14.8 % (11.5-14.0); White Blood Count 5.2 K/mm3 (4.0-10.5)
[2016-09-12 05:54] LABS: ANION GAP 15.5 MEQ/L (5-15); Carbon Dioxide 23.4 mEq/L (21-32); Potassium 3.2 mEq/L (3.5-5.1)
--- NOTE | 2016-09-12 07:49 | ECHO ---
DATE OF PROCEDURE: 09/11/2016 CLINICAL INFORMATION: Hypoxia. She has a history of mitral valve and tricuspid valve replacement in 2009 and a permanent pacemaker in 2012. The left ventricular systolic function is decreased with an ejection fraction estimated between 40 and 45%. There is mild diffuse hypokinesis present. There is mild mitral regurgitation present. There is a small posterior pericardial effusion. The left atrium is moderately dilated with a dimension of 5.4 cm. The aortic root is normal with a dimension of 2.4 cm. Left ventricle was normal in size with a dimension of 4.7 cm. The septal wall thickness is 1.0. The left ventricular posterior wall thickness is 1.0. There is a right ventricular electrode noted. There is moderate tricuspid regurgitation. The right ventricular systolic pressure is mildly elevated at 43 mm of [place]. There is mitral valve calcification. The aortic valve opens well and it is trileaflet. There is mild pulmonic regurgitation. The right atrium is mildly dilated. The intra-atrial septum is intact. IMPRESSION: 1) MILD MITRAL REGURGITATION. 2) MILD TRICUSPID REGURGITATION. 3) MILD PULMONARY REGURGITATION. 4) MODERATE PULMONARY HYPERTENSION. 5) SMALL POSTERIOR PERICARDIAL EFFUSION. 6) MILD IMPAIRMENT OF LEFT VENTRICULAR SYSTOLIC FUNCTION. 7) MODERATE DILATATION OF THE LEFT ATRIUM.
[2016-09-12] MEDS: Phenergan 25 MG INJ IV PRN (07:55)
[2016-09-12] MEDS: NEURONTIN 300 MG PO SCH ×2 (08:39→14:26)
[2016-09-12] MEDS: COREG 12.5 MG PO SCH (08:39)
[2016-09-12] MEDS: NORVASC 5 MG PO SCH (08:40)
[2016-09-12] MEDS: Prozac 20 MG PO SCH (09:05)
[2016-09-12] MEDS: Vitamin E 400 UNIT SOFTGEL PO SCH (09:05)
[2016-09-12] MEDS: Carafate SUSPENSION 1000 MG/10 ML PO SCH ×3 (09:05→16:28)
[2016-09-12] MEDS: Protonix 40MG Tablet PO SCH (09:06)
[2016-09-12] MEDS: Sodium Chloride 0.9% 10 ML FLUSH Syringe IV SCH ×2 (09:06→12:35)
[2016-09-12] MEDS: ENOXAPARIN SODIUM SQ SCH (09:06)
[2016-09-12] MEDS: VITAMIN D PO SCH (09:06)
[2016-09-12] MEDS: Aricept 10 MG PO SCH (09:06)
[2016-09-12] MEDS: SYNTHROID 75 MCG PO SCH (09:06)
[2016-09-12] MEDS: MS CONTIN 30 MG PO SCH (09:06)
--- NOTE | 2016-09-12 09:08 | PCM.NOTE ---
Date and Time: 09/12/16902 Subjective Assessment: She is nauseated this Am. Her nurse reports they have to give her phenergan each AM for her ot take her medication. Her BNP was markedly elevated yesterday and chest X-ray with signs of failure. She has a history of cardiomyopathy and hx of valve replacements. Her reports that Dr. Kebede is her variety performer and she doesn't see any other variety performer. [facility] will not consult here as we do not have a working telemedicine stethoscope and Dr. Kim will not see her here because she is a patient of Dr. Kebede's. I explained to the patient and her that with her CKD and now CHF exacerbation, that I want to transfer her where she can see a variety performer and developer analyst. - Review of Systems Constitutional: Fatigue Eyes: No Symptoms Ears, Nose, & Throat: No Symptoms Respiratory: Cough Cardiac: No Symptoms Abdominal/Gastrointestinal: Nausea, Vomiting Genitourinary Symptoms: No Symptoms Musculoskeletal: Back Pain Skin: No Symptoms Objective Exam General Appearance: no apparent distress, other ( at bedside) Neurologic Exam: alert, cooperative, normal mood/affect Skin Exam: normal color, warm, dry, No rash Respiratory Exam: other (few scattered wheezes, equal breath sounds) Cardiovascular Exam: regular rate/rhythm, normal heart sounds, No murmur, No friction rub, No gallop Gastrointestinal/Abdomen Exam: soft, normal bowel sounds, other (mild tenderness , no guarding, no rigidity) Extremity Exam: other (+1 edema to lower extremities bilat) OBJECTIVE DATA Vital Signs: Vital Signs - 24 hr Temp Pulse Resp BP Pulse Ox 09/12/16 08:00 99.6 F 71 20 141/66 91 L 09/12/16 04:00 98.9 F 84 19 151/65 96 09/12/16 00:00 98.8 F 79 22 152/70 95 09/11/16 23:33 74 18 90 L 09/11/16 20:00 98.8 F 18 134/61 94 L 09/11/16 16:00 98.7 F 80 18 167/77 92 L 09/11/16 12:00 99.0 F 72 16 136/63 93 L 09/11/16 11:16 72 16 Oxygen-Last 24 hours O2 Percentage 2 Liters = 28% O2 Percentage 4 Liters = 36% O2 Percentage 2 Liters = 28% O2 Percentage 2 Liters = 28% O2 Percentage 3 Liters = 32% O2 Percentage 2 Liters = 28% Pain Assessment - Last Documented Pain Intensity 8 Pain Scale Used 0-10 Pain Scale Intake and Output: Intake & Output 09/10/16 09/11/16 09/12/16 09/13/16 06:59 06:59 06:59 06:59 Intake Total 200 3011 480 Output Total 400 2000 1200 Balance -200 1011 -720 Weight 100.335 kg 100.335 kg 101.151 kg 101.831 kg Lab Results: Accuchecks Date 09/11/16 Date 09/11/16 Time 16:30 Time 11:30 Accucheck Value: 149 Accucheck Value: 128 Lab Results-Last 24 Hours 09/11/16 09/11/16 09/11/16 Range/Units 05:38 08:30 08:30 WBC 5.3 (4.0-10.5) K/mm3 RBC 2.80 L (4.1-5.4) M/mm3 Hgb 8.5 L (12.0-16.0) gm/dl Hct 26.8 L (35-47) % MCV 95.7 (78-100) fl MCH 30.3 (26-32) pg MCHC 31.7 L (32-36) g/dl RDW 14.7 H (11.5-14.0) % Plt Count 125 L (150-450) K/mm3 MPV 12.0 H (6-9.5) fl Gran % (36.0-66.0) % Lymphocytes % (24.0-44.0) % Monocytes % (0.0-12.0) % Eosinophils % (0.00-5.0) % Basophils % (0.0-0.4) % Segmented Neutrophils 78 H (36.0-66.0) % Lymphocytes (Manual) 16 L (24-44) % Monocytes (Manual) 6 (0.0-12.0) % Basophils # (0-0.4) Platelet Estimate NORMAL (NORMAL) Poikilocytosis 1+ Anisocytosis 1+ Rouleaux 1+ Sodium (136-145) mEq/L Potassium (3.5-5.1) mEq/L Chloride (98-107) mEq/L Carbon Dioxide (21-32) mEq/L Anion Gap (5-15) MEQ/L BUN (9-20) mg/dL Creatinine (0.55-1.30) mg/dl Estimated GFR ML/MIN Glucose (70-110) MG/DL Calcium (8.5-10.1) mg/dL Iron Cancelled Ferritin 180 (8-388) NT-Pro-B Natriuret Pep 36027 H (0-450) pg/ml Stl C. diff Tox B Gene (NEGATIVE) C.difficile 027-NAP1-B1 (NEGATIVE) 09/11/16 09/12/16 09/12/16 Range/Units 16:15 05:05 05:05 WBC 5.2 (4.0-10.5) K/mm3 RBC 2.98 L (4.1-5.4) M/mm3 Hgb 9.0 L (12.0-16.0) gm/dl Hct 28.6 L (35-47) % MCV 96.0 (78-100) fl MCH 30.2 (26-32) pg MCHC 31.5 L (32-36) g/dl RDW 14.8 H (11.5-14.0) % Plt Count 133 L (150-450) K/mm3 MPV 12.3 H (6-9.5) fl Gran % 76.2 H (36.0-66.0) % Lymphocytes % 11.6 L (24.0-44.0) % Monocytes % 8.1 (0.0-12.0) % Eosinophils % 3.5 (0.00-5.0) % Basophils % 0.6 (0.0-0.4) % Segmented Neutrophils (36.0-66.0) % Lymphocytes (Manual) (24-44) % Monocytes (Manual) (0.0-12.0) % Basophils # 0.03 (0-0.4) Platelet Estimate (NORMAL) Poikilocytosis Anisocytosis Rouleaux Sodium 148 H (136-145) mEq/L Potassium 3.2 L (3.5-5.1) mEq/L Chloride 112 H (98-107) mEq/L Carbon Dioxide 23.4 (21-32) mEq/L Anion Gap 15.5 H (5-15) MEQ/L BUN 15 (9-20) mg/dL Creatinine 1.75 H (0.55-1.30) mg/dl Estimated GFR 30 ML/MIN Glucose 120 H (70-110) MG/DL Calcium 8.0 L (8.5-10.1) mg/dL Iron Ferritin (8-388) NT-Pro-B Natriuret Pep (0-450) pg/ml Stl C. diff Tox B Gene NEGATIVE (NEGATIVE) C.difficile 027-NAP1-B1 PRESUMPTIVE NEGATIVE (NEGATIVE) Radiology Exams: Radiology Procedures Category Date Time Status CHEST 2 VIEWS (PA AND LAT) Routine Exams 09/11/16 08:35 Completed ECHO W/2D AND DOPPLER [US] Routine Exams 09/11/16 08:37 Draft Multi-Disciplinary Progress Notes: Multi-Disciplinary Progress Notes 09/11/16 09:15 Respiratory Note by Josiah Griffiths 09/11/16 0800-patient sat on room air was 83% at rest, HR-72, RR-20, patient was placed on 2 lpm nasal cannula and sats came up to 96%. She was oriented to time , place and person. Nurse Figueroa notified. Josiah Griffiths [employer] Initialized on 09/11/16 09:15 - END OF NOTE Assessment/Plan (1) Congestive heart failure with cardiomyopathy and cardiomegaly Current Visit: Yes Status: Acute Assessment & Plan: I am trying to contact her variety performer to discuss transfer so she can be seen by a variety performer and developer analyst at the same facility. Code(s): I50.9 - HEART FAILURE, UNSPECIFIED; I42.9 - CARDIOMYOPATHY, UNSPECIFIED ; I51.7 - CARDIOMEGALY (2) Chronic kidney disease (CKD) stage G3a/A3, moderately decreased glomerular filtration rate (GFR) between 45-59 mL/min/1.73 square meter and albuminuria creatinine ratio greater than 300 mg/g Current Visit: Yes Status: Acute Assessment & Plan: Her creatinine continues to be elevated. Code(s): N18.3 - CHRONIC KIDNEY DISEASE, STAGE 3 (MODERATE) (3) Diabetes type 2, controlled Current Visit: No Status: Chronic Qualifiers: Diabetes mellitus complication status: without complication Diabetes mellitus senior living insulin use: with wat[employer] use Qualified Code(s): E11.9 - Type 2 diabetes mellitus without complications; Z79.4 - group home (current) use of insulin Code(s): E11.9 - TYPE 2 DIABETES MELLITUS WITHOUT COMPLICATIONS (4) Hypoxia Current Visit: Yes Status: Acute Code(s): R09.02 - HYPOXEMIA (5) COPD (chronic obstructive pulmonary disease) Current Visit: Yes Status: Acute (6) Anemia Current Visit: Yes Status: Acute Qualifiers: Anemia type: unspecified type Qualified Code(s): D64.9 - Anemia, unspecified Assessment & Plan: Checking iron studies. Code(s): D64.9 - ANEMIA, UNSPECIFIED
[2016-09-12] MEDS ORDERED: POTASSIUM CHLORIDE 20 mEq IN WATER 100ML 100 ML IV ONE (09:10)
[2016-09-12] MEDS ORDERED: Lasix 20 MG/2 ML IV ONE (14:00)
[2016-09-12 16:31] VITALS: BP 120/57; PULSE 82; O2SAT 98
[2016-09-13 14:54] LABS: Giardia Antigen EIA Negative (Negative)
== END 2016-09-12 17:10 | disposition home or self-care (01) ==
LOC: ED 22:26 → MED SURG 09-10 02:21
PROVIDERS: ADMIT Internal Medicine; ATTEND Internal Medicine
DX: E87.6 Hypokalemia (principal); I12.9 Hypertensive chronic kidney disease with stage 1 through stage 4 chronic kidney disease, or unspecified chronic kidney disease; N18.3 Chronic kidney disease, stage 3 (moderate); Z79.84 Long term (current) use of oral hypoglycemic drugs; E11.9 Type 2 diabetes mellitus without complications; F03.90 Unspecified dementia, unspecified severity, without behavioral disturbance, psychotic disturbance, mood disturbance, and anxiety; M54.9 Dorsalgia, unspecified; G89.29 Other chronic pain; F45.42 Pain disorder with related psychological factors; J44.9 Chronic obstructive pulmonary disease, unspecified; R09.02 Hypoxemia; D64.9 Anemia, unspecified; F32.9 Major depressive disorder, single episode, unspecified; I50.9 Heart failure, unspecified; I51.7 Cardiomegaly; I42.9 Cardiomyopathy, unspecified; Z95.2 Presence of prosthetic heart valve; I35.0 Nonrheumatic aortic (valve) stenosis; K21.9 Gastro-esophageal reflux disease without esophagitis; K44.9 Diaphragmatic hernia without obstruction or gangrene; Z95.0 Presence of cardiac pacemaker; Z79.899 Other long term (current) drug therapy
CPT/HCPCS: 36000; 36415; 71020; 80048; 80053; 81000; 82150; 82728; 82962; 83540; 83550; 83690; 83735; 83880; 84132; 84443; 85025; 87040; 87045; 87046; 87086; 87177; 87209; 87335; 87493; 93268; 93306; 94640; 94760; 96360; 96361; 96365; 99285; G0378; J0696; J1650; J1940; J2550; J3475; J3480; A9270-GY

== ENCOUNTER 2017-04-26 15:05 | Observation (INO) | payer MEDICARE ==
[2017-04-26 15:54] LABS: BASOPHIL % 0.6 % (0.0-0.4); Eosinophil % 2.7 % (0.00-5.0); Granulocytes % 70.3 % (36.0-66.0); Lymphocytes % 19.1 % (24.0-44.0); Mean Cell Volume 98.7 fl (78-100); Mean Platelet Volume 12.8 fl (6-9.5); Monocytes % 7.3 % (0.0-12.0); Platelet Count 129 K/mm3 (150-450); Red Blood Count 3.13 M/mm3 (4.1-5.4); Red Cell Distribution Width 14.2 % (11.5-14.0); White Blood Count 4.8 K/mm3 (4.0-10.5)
[2017-04-26 15:55] LABS: Mean Corpuscular Hemoglobin 30.3 pg (26-32)
--- NOTE | 2017-04-26 16:04 | ERPHSYRPT ---
- History of Present Illness Time Seen by Provider: 04/26/17 15:41 Source: patient, family () Patient Subjective Stated Complaint: pt states her right leg has been swollen for the past few days. pt states her legs normally are not swollen. pt states she has gained 15 lbs in last few days. Triage Nursing Assessment: pt pink, warm, dry. right pedal pulse weaker than left pedal pulse. both heard with dopplar. pt pink, warm, dry. breathing wnl. lung sounds clear and equal. Physician History: CC: leg swelling Hx: 76 y/o patient of Dr Kim lives at home with her . She has hx of CHF and heart disease. No hx of blood clots. She takes coumadin. She has increased leg swelling now worse on the right leg. It is swollen up to her thigh. No fever or chills. No chest pain. No injury. No real pain. Allergies/Adverse Reactions: oxycodone Allergy (Verified 04/26/17 15:30) paper tape Allergy (Uncoded 04/26/17 15:30) Home Medications: Amlodipine Besylate 10 mg [Norvasc 10 MG] 10 mg PO DAILY 05/31/16 [History] Carvedilol [Coreg] 25 mg PO BID 05/31/16 [History] Fluoxetine HCl [Prozac] 40 mg PO DAILY 05/31/16 [History] Gabapentin 300 mg PO TID 05/31/16 [History] Lubiprostone [Amitiza] 8 mcg PO BID 05/31/16 [History] Morphine Sulfate [Morphine Sulfate ER] 30 mg PO TID 05/31/16 [History] Omeprazole 40 mg PO DAILY 05/31/16 [History] Pramipexole Di-HCl 0.5 mg [Mirapex 0.5 MG Tablet] 1 mg PO HS 05/31/16 [ History] Cholecalciferol (Vitamin D3) [Vitamin D] 1,000 unit PO DAILY 08/14/16 [ History] Cranberry 500 mg PO DAILY 08/14/16 [History] Donepezil HCl 10 mg [Aricept 10 MG] 10 mg PO DAILY 08/14/16 [History] Levothyroxine Sodium 75 Mcg [Synthroid 75 Mcg] 75 mcg PO DAILY 08/14/16 [ History] Vitamin E 400 Units [Vitamin E 400 UNIT SOFTGEL] 400 unit PO DAILY [History] Bumetanide [Bumex] 1 mg PO DAILY 04/26/17 [History] Bumetanide [Bumex] 2 mg PO DAILY 04/26/17 [History] Warfarin Sodium 2 mg [Coumadin 2 MG] 2 mg PO UD 04/26/17 [History] Warfarin Sodium [Coumadin] 4 mg PO UD 04/26/17 [History] Hx Tetanus, Diphtheria Vaccination/Date Given: Yes (up to date) Hx Influenza Vaccination/Date Given: Yes Hx Pneumococcal Vaccination/Date Given: Yes Immunizations Up to Date: Yes - Review of Systems Constitutional: No Fever, No Chills Eyes: No Symptoms Ears, Nose, & Throat: No Symptoms Respiratory: No Cough, No Dyspnea Cardiac: Edema, No Chest Pain Abdominal/Gastrointestinal: No Abdominal Pain, No Nausea, No Vomiting Skin: No Rash Neurological: No Focal Weakness, No Headache, No Parasthesia All Other Systems: Reviewed and Negative - Past Medical History Pertinent Past Medical History: Yes Neurological History: No Pertinent History ENT History: Cataracts Cardiac History: Coronary Artery Disease, Hypertension Respiratory History: COPD Endocrine Medical History: Diabetes Type II Musculoskeletal History: Arthritis GI Medical History: No Pertinent History History: Renal Disease Psycho-Social History: No Pertinent History Female Reproductive Disorders: No Pertinent History - Past Surgical History Past Surgical History: Yes Neuro Surgical History: No Pertinent History Cardiac: CABG, Pacemaker, Valve Replacement Gastrointestinal: Appendectomy, Cholecystectomy Genitourinary: No Pertinent History Musculoskeletal: No Pertinent History Female Surgical History: Hysterectomy Other Surgical History: Heart Valve repair - Social History Smoking Status: Never smoker Exposure to second hand smoke: No Drug Use: none Patient Lives Alone: No - Nursing Vital Signs Nursing Vital Signs: Initial Vital Signs Temperature 98.2 F 04/26/17 15:22 Pulse Rate 72 04/26/17 15:22 Respiratory Rate 18 04/26/17 15:22 Blood Pressure 141/69 04/26/17 15:22 O2 Sat by Pulse Oximetry 100 04/26/17 15:22 Pain Scale Pain Intensity 0 - Physical Exam General Appearance: alert Eyes, Ears, Nose, Throat Exam: normal ENT inspection, moist mucous membranes Neck Exam: normal inspection, non-tender, supple Cardiovascular/Respiratory Exam: normal breath sounds, regular rate/rhythm Gastrointestinal/Abdominal Exam: non-tender, soft Neuro/Tendon Exam: normal sensation, normal motor functions Mental Status Exam: alert, oriented x 3, cooperative Skin Exam: warm, dry, No rash SpO2 Interpretation: normal SpO2: 100 Oxygen Delivery: Nasal Cannula Comments: Bilateral leg edema worse on right leg up to the thigh area. Minimal redness. - Course Nursing assessment & vital signs reviewed: Yes EKG Interpreted by Me: RATE (70 paced rhythm) - Radiology Exams cxr X-ray Interpretation: Teleradiologist Report (mild interstitial edema favoring cardiac decompensation) - Radiology Ultrasound Exam bilateral LE venous dopplers Ultrasound: Other (negative for DVT per tech.) Ordered Tests: Active Orders 24 hr Category Date Time Status EKG-ER Only STAT Care 04/26/17 15:46 Active IV Insertion STAT Care 04/26/17 15:46 Active Pulse Oximetry (ED) STAT Care 04/26/17 15:46 Active CHEST 1 VIEW (PORTABLE) Stat Exams 04/26/17 15:46 Completed VENOUS BILATERAL EXTREMITY [US] Stat Exams 04/26/17 15:45 Taken CBC W DIFF Stat Lab 04/26/17 15:45 Completed CMP Stat Lab 04/26/17 15:45 Completed NT PRO BNP Stat Lab 04/26/17 15:45 Completed PROTIME WITH INR Stat Lab 04/26/17 15:45 Completed UA W/ MICROSCOPIC Stat Lab 04/26/17 15:46 Completed Lab/Rad Data: Laboratory Result Diagrams 04/26/17 15:45 04/26/17 15:45 Laboratory Results 04/26/17 04/26/17 04/26/17 Range/Units 15:46 15:45 15:45 WBC (4.0-10.5) K/mm3 RBC (4.1-5.4) M/mm3 Hgb (12.0-16.0) gm/dl Hct (35-47) % MCV (78-100) fl MCH (26-32) pg MCHC (32-36) g/dl RDW (11.5-14.0) % Plt Count (150-450) K/mm3 MPV (6-9.5) fl Gran % (36.0-66.0) % Lymphocytes % (24.0-44.0) % Monocytes % (0.0-12.0) % Eosinophils % (0.00-5.0) % Basophils % (0.0-0.4) % Basophils # (0-0.4) INR 1.85 (0.8-3.0) Sodium 148 H (136-145) mEq/L Potassium 3.4 L (3.5-5.1) mEq/L Chloride 106 (98-107) mEq/L Carbon Dioxide 32.5 H (21-32) mEq/L Anion Gap 13.1 (5-15) MEQ/L BUN 15 (9-20) mg/dL Creatinine 1.28 (0.55-1.30) mg/dl Estimated GFR 43 ML/MIN Glucose 107 (70-110) MG/DL Calcium 8.4 L (8.5-10.1) mg/dL Total Bilirubin 0.90 (0.2-1.0) mg/dL AST 26 (15-37) U/L ALT 10 L (12-78) U/L Alkaline Phosphatase 92 (46-116) U/L NT-Pro-B Natriuret Pep 5258 H (0-450) pg/ml Serum Total Protein 7.2 (6.4-8.2) gm/dL Albumin 3.3 L (3.4-5.0) g/dL Ur Collection Type VOID Urine Color LT.YELLOW (YELLOW) Urine Appearance CLEAR (CLEAR) Urine pH 5.0 (5-6) Ur Specific Crawford 1.010 (1.005-1.025) Urine Protein NEGATIVE (Negative) Urine Ketones NEGATIVE (NEGATIVE) Urine Blood NEGATIVE (0-5) Silviano/ul Urine Nitrite NEGATIVE (NEGATIVE) Urine Bilirubin NEGATIVE (NEGATIVE) Urine Urobilinogen NORMAL (0-1) mg/dL Ur Leukocyte Esterase MODERATE (NEGATIVE) Urine Microscopic RBC 0-2 (0-2) /HPF Urine Microscopic WBC 2-5 (0-5) /HPF Ur Epithelial Cells FEW (FEW) /HPF Urine Bacteria RARE (NEGATIVE) /HPF Urine Culture Reflexed NO (NO) Urine Glucose NEGATIVE (NEGATIVE) mg/dL Specimen Received 04/26/17 1135 04/26/17 Range/Units 15:45 WBC 4.8 (4.0-10.5) K/mm3 RBC 3.13 L (4.1-5.4) M/mm3 Hgb 9.5 L (12.0-16.0) gm/dl Hct 30.9 L (35-47) % MCV 98.7 (78-100) fl MCH 30.3 (26-32) pg MCHC 30.7 L (32-36) g/dl RDW 14.2 H (11.5-14.0) % Plt Count 129 L (150-450) K/mm3 MPV 12.8 H (6-9.5) fl Gran % 70.3 H (36.0-66.0) % Lymphocytes % 19.1 L (24.0-44.0) % Monocytes % 7.3 (0.0-12.0) % Eosinophils % 2.7 (0.00-5.0) % Basophils % 0.6 (0.0-0.4) % Basophils # 0.03 (0-0.4) INR (0.8-3.0) Sodium (136-145) mEq/L Potassium (3.5-5.1) mEq/L Chloride (98-107) mEq/L Carbon Dioxide (21-32) mEq/L Anion Gap (5-15) MEQ/L BUN (9-20) mg/dL Creatinine (0.55-1.30) mg/dl Estimated GFR ML/MIN Glucose (70-110) MG/DL Calcium (8.5-10.1) mg/dL Total Bilirubin (0.2-1.0) mg/dL AST (15-37) U/L ALT (12-78) U/L Alkaline Phosphatase (46-116) U/L NT-Pro-B Natriuret Pep (0-450) pg/ml Serum Total Protein (6.4-8.2) gm/dL Albumin (3.4-5.0) g/dL Ur Collection Type Urine Color (YELLOW) Urine Appearance (CLEAR) Urine pH (5-6) Ur Specific Crawford (1.005-1.025) Urine Protein (Negative) Urine Ketones (NEGATIVE) Urine Blood (0-5) Silviano/ul Urine Nitrite (NEGATIVE) Urine Bilirubin (NEGATIVE) Urine Urobilinogen (0-1) mg/dL Ur Leukocyte Esterase (NEGATIVE) Urine Microscopic RBC (0-2) /HPF Urine Microscopic WBC (0-5) /HPF Ur Epithelial Cells (FEW) /HPF Urine Bacteria (NEGATIVE) /HPF Urine Culture Reflexed (NO) Urine Glucose (NEGATIVE) mg/dL Specimen Received - Progress Progress Note: 04/26/17 17:47 The patient is stable. She appears to have fluid overload and heart failure. No DVT. She apparently started in pain clinic then quick care then ER today. CAlled Dr Namita Forbes for Roberto and will give IV lasix and place in obs for diuresis. Will see patient in: hospital (observation) Counseled pt/family regarding: lab results, diagnosis, need for follow-up, rad results - Departure Time of Disposition: 17:48 Departure Disposition: Observation Clinical Impression: Fluid overload, Edema, CHF (congestive heart failure) Condition: Fair Critical Care Time: No Referrals: NIALL KIM [Primary Care Provider] - Instructions: Heart Failure
[2017-04-26 16:07] LABS: INR 1.85 (0.8-3.0); PROTIME 20.7 SECONDS (9.95-12.35)
--- NOTE | 2017-04-26 16:19 | XRAY ---
Indication: CHF. Leg swelling. Comparison: September 11, 2016. Portable chest again demonstrates cardiomegaly with mild central vascular congestion, mild interstitial edema, and tiny bibasilar effusions but less than before favoring cardiac decompensation. Superimposed pneumonia not completely excluded. Again previous cardiac valvular replacement surgery and left-sided dual-lead pacemaker.
[2017-04-26 16:21] LABS: ALBUMIN 3.3 g/dL (3.4-5.0); ANION GAP 13.1 MEQ/L (5-15); BILIRUBIN,TOTAL 0.9 mg/dL (0.2-1.0); Carbon Dioxide 32.5 mEq/L (21-32); Potassium 3.4 mEq/L (3.5-5.1); Total Protein 7.2 gm/dL (6.4-8.2)
[2017-04-26 16:36] LABS: Bilirubin NEGATIVE (NEGATIVE); Blood NEGATIVE Ery/ul (0-5); COMPLETE URINE MICROSCOPIC? YES; Collection Type VOID; Epithelial Cells FEW /HPF (FEW); Glucose NEGATIVE (NEGATIVE); Leukocyte Esterase MODERATE (NEGATIVE)
[2017-04-26 16:37] LABS: ADD URINE CULTURE? NO (NO); Bacteria RARE /HPF (NEGATIVE)
[2017-04-26] MEDS ORDERED: Lasix 40 MG/4 ML IV ONE (17:47)
--- NOTE | 2017-04-26 17:51 | XRAY ---
Indication: Bilateral leg edema. Currently on warfarin therapy. Right calf lump. Two-dimensional sonogram and color Doppler imaging of the major venous vessels of the left and right leg was performed. Comparison: None No thrombus seen in the examined deep venous vessels of the left and right leg including greater saphenous veins. Veins demonstrate normal compressibility. Venous waveforms are normal with and without augmentation. There is mild subcutaneous soft tissue edema at the level of the calf bilaterally. Targeted ultrasound of the right calf lump corresponds to a 1.7 x 1.7 x 0.8 cm subcutaneous anechoic fluid collection. Impression: 1. Left and right legs negative for DVT. 2. Right calf lump corresponds to a small subcutaneous fluid collection. 3. Bilateral calf edema. Comment: Preliminary report was given.
[2017-04-26] MEDS ORDERED: Lasix 40 MG/4 ML ONE (17:57)
[2017-04-26] MEDS ORDERED: MS CONTIN 30 MG PO ONE (22:00)
[2017-04-26] MEDS ORDERED: AMITIZA PO ONE (22:00)
[2017-04-26] MEDS ORDERED: Mirapex 0.5 MG Tablet PO ONE (22:00)
[2017-04-26] MEDS ORDERED: NEURONTIN 300 MG PO ONE (22:00)
[2017-04-26] MEDS ORDERED: COREG 12.5 MG PO ONE (22:00)
[2017-04-27 06:29] LABS: Mean Cell Volume 98.6 fl (78-100); Mean Platelet Volume 13.1 fl (6-9.5); Platelet Count 119 K/mm3 (150-450); Red Blood Count 2.89 M/mm3 (4.1-5.4); White Blood Count 4.5 K/mm3 (4.0-10.5)
[2017-04-27 06:59] LABS: Mean Corpuscular Hemoglobin 29.7 pg (26-32)
[2017-04-27 07:17] LABS: ANION GAP 9.3 MEQ/L (5-15); Carbon Dioxide 34.4 mEq/L (21-32)
[2017-04-27 07:51] LABS: Potassium 2.9 mEq/L (3.5-5.1)
[2017-04-27] MEDS ORDERED: MEDICATION INTERVENTION MC PRN (07:54)
[2017-04-27] MEDS: POTASSIUM CHLORIDE 20 mEq IN WATER 100ML 20 MEQ/100 ML BAG IV SCH ×2 (08:18→10:03)
[2017-04-27] MEDS ORDERED: Sodium Chloride 0.9% 1000 ML 1,000 ML ONE (08:21)
[2017-04-27] MEDS ORDERED: Sodium Chloride 0.9% 1000 ML 1,000 ML IV SCH (08:45)
--- NOTE | 2017-04-27 08:53 | PCM.HP ---
History of Present Illness - Chief Complaint Chief Complaint: CHF Date: 04/27/17 History of Present Illness: is a 76 year old female. she is tired this am and some difficulty recalling recent events she says her feet have been swollen and she feels weak for the last few days she was sent from pain mgmt to [facility] to ed and was very exhausted by then with the swelling this appears to be improved base don the notes this am - Review of Systems Constitutional: Fatigue, No Fever, No Chills Eyes: No Symptoms Ears, Nose, & Throat: No Symptoms Respiratory: No Cough, No Short Of Breath Cardiac: Edema, No Chest Pain, No Syncope Abdominal/Gastrointestinal: No Abdominal Pain, No Nausea, No Vomiting, No Diarrhea Genitourinary Symptoms: No Dysuria Musculoskeletal: No Back Pain, No Neck Pain Skin: No Rash Neurological: No Dizziness, No Focal Weakness, No Sensory Changes Psychological: No Symptoms Endocrine: No Symptoms Hematologic/Lymphatic: No Symptoms Immunological/Allergic: No Symptoms Medications & Allergies Home Medications: Home Medication List Amlodipine Besylate 10 mg [Norvasc 10 MG] 10 mg PO DAILY 05/31/16 [History Confirmed 04/26/17] Carvedilol [Coreg] 25 mg PO BID 05/31/16 [History Confirmed 04/26/17] Fluoxetine HCl [Prozac] 40 mg PO DAILY 05/31/16 [History Confirmed 04/26/17] Gabapentin 300 mg PO TID 05/31/16 [History Confirmed 04/26/17] Lubiprostone [Amitiza] 8 mcg PO BID 05/31/16 [History Confirmed 04/26/17] Morphine Sulfate [Morphine Sulfate ER] 30 mg PO TID 05/31/16 [History Confirmed 04/26/17] Omeprazole 40 mg PO DAILY 05/31/16 [History Confirmed 04/26/17] Pramipexole Di-HCl 0.5 mg [Mirapex 0.5 MG Tablet] 1 mg PO HS 05/31/16 [ History Confirmed 04/26/17] Cholecalciferol (Vitamin D3) [Vitamin D] 1,000 unit PO DAILY 08/14/16 [ History Confirmed 04/26/17] Cranberry 500 mg PO DAILY 08/14/16 [History Confirmed 04/26/17] Donepezil HCl 10 mg [Aricept 10 MG] 10 mg PO DAILY 08/14/16 [History Confirmed 04/26/17] Levothyroxine Sodium 75 Mcg [Synthroid 75 Mcg] 75 mcg PO DAILY 08/14/16 [ History Confirmed 04/26/17] Vitamin E 400 Units [Vitamin E 400 UNIT SOFTGEL] 400 unit PO DAILY [History Confirmed 04/26/17] Bumetanide [Bumex] 1 mg PO DAILY 04/26/17 [History Confirmed 04/26/17] Bumetanide [Bumex] 2 mg PO DAILY 04/26/17 [History Confirmed 04/26/17] Warfarin Sodium 2 mg [Coumadin 2 MG] 2 mg PO UD 04/26/17 [History Confirmed 04/26/17] Warfarin Sodium [Coumadin] 4 mg PO UD 04/26/17 [History Confirmed 04/26/17] Allergies/Adverse Reactions: Allergies Allergy/AdvReac Type Severity Reaction Status Date / Time oxycodone Allergy Verified 04/26/17 15:30 paper tape Allergy Uncoded 04/26/17 15:30 - Past Medical History Past Medical History: Yes Neurological History: No Pertinent History ENT History: Cataracts Cardiac History: Coronary Artery Disease, Hypertension Respiratory History: COPD Endocrine Medical History: Diabetes Type II Musculoskelatal History: Arthritis GI Medical History: No Pertinent History History: Renal Disease Pyscho-Social History: No Pertinent History Reproductive Disorders: No Pertinent History - Female History Are you now?: No - Past Surgical History Past Surgical History: Yes Neuro Surgical History: No Pertinent History Cardiac History: CABG, Pacemaker, Valve Replacement GI Surgical History: Appendectomy, Cholecystectomy Genitourinary Surgical Hx: No Pertinent History Musculskeletal Surgical Hx: No Pertinent History Female Surgical History: Hysterectomy Other Surgical History: Heart Valve repair - Social History Smoking Status: Never smoker Exposure to second hand smoke: No Alcohol: None Drug Use: none - Physical Exam Vital Signs: Vital Signs - 24 hr Temp Pulse Resp BP Pulse Ox 04/27/17 07:38 96 04/27/17 07:05 98.3 F 72 18 146/65 95 04/27/17 03:57 15 04/27/17 00:00 98.4 F 70 15 153/71 99 04/26/17 20:05 97.9 F 70 17 173/83 93 L 04/26/17 20:00 97.8 F 70 17 173/83 93 L 04/26/17 19:53 90 89 L 04/26/17 18:33 67 18 156/89 99 04/26/17 17:50 70 20 156/89 97 04/26/17 17:49 100 04/26/17 17:27 100 04/26/17 16:35 74 16 140/81 100 04/26/17 15:22 98.2 F 72 18 141/69 100 Oxygen-Last 24 hours O2 Percentage 2 Liters = 28% O2 Percentage 2 Liters = 28% O2 Percentage 2 Liters = 28% General Appearance: no apparent distress, alert, obese Neurologic Exam: alert, cooperative, normal mood/affect, nml cerebellar function , nml station & gait, sensation nml, No oriented x 3, No motor deficits Eye Exam: PERRL/EOMI, eyes nml inspection Ears, Nose, Throat Exam: normal ENT inspection, TMs normal, pharynx normal, moist mucous membranes Neck Exam: normal inspection, non-tender, supple, full range of motion Respiratory Exam: crackles/rales (bilateral bases), No respiratory distress Cardiovascular Exam: regular rate/rhythm, normal peripheral pulses, murmur, edema (1+ moreno LE) Gastrointestinal/Abdomen Exam: soft, normal bowel sounds, No tenderness, No mass Back Exam: normal inspection, normal range of motion, No CVA tenderness, No vertebral tenderness Extremity Exam: normal inspection, normal range of motion, pelvis stable Skin Exam: normal color, warm, dry, No rash Lymphatic Exam: No adenopathy Results - Labs Lab/Micro Results: Accuchecks Date 04/27/17 Date 04/26/17 Time 07:18 Accucheck Value: 94 Accucheck Value: 186 Lab Results-Last 24 Hours 04/27/17 04/27/17 Range/Units 05:35 05:35 WBC 4.5 (4.0-10.5) K/mm3 RBC 2.89 L (4.1-5.4) M/mm3 Hgb 8.6 L (12.0-16.0) gm/dl Hct 28.5 L (35-47) % MCV 98.6 (78-100) fl MCH 29.7 (26-32) pg MCHC 30.2 L (32-36) g/dl RDW 14.0 (11.5-14.0) % Plt Count 119 L (150-450) K/mm3 MPV 13.1 H (6-9.5) fl Sodium 148 H (136-145) mEq/L Potassium 2.9 L* (3.5-5.1) mEq/L Chloride 106 (98-107) mEq/L Carbon Dioxide 34.4 H (21-32) mEq/L Anion Gap 9.3 (5-15) MEQ/L BUN 13 (9-20) mg/dL Creatinine 1.20 (0.55-1.30) mg/dl Estimated GFR 46 ML/MIN Glucose 92 (70-110) MG/DL Calcium 7.7 L (8.5-10.1) mg/dL NT-Pro-B Natriuret Pep 5398 H (0-450) pg/ml Accuchecks Date 04/27/17 Date 04/26/17 Time 07:18 Accucheck Value: 94 Accucheck Value: 186 - Radiology Impressions Radiology Exams & Impressions: Radiology Procedures Category Date Time Status ECHO W/2D AND DOPPLER [US] Routine Exams 04/29/17 08:00 Ordered Assessment/Plan (1) Acute systolic CHF (congestive heart failure) Current Visit: Yes Status: Acute Assessment & Plan: lvef 40 to 45% some crackles bilateral and edema bilateral she states she is on home O2 will d/c the calcium channel rika and use some hydralazine and imdur in its place she is not on an verónica inhibitor or arb due to her renal failure and follows with cardiology and nephrology will leave adding this back on up to them increase the lasix to tid and add potassium supplement po after rider this am repeat am labs Code(s): I50.21 - ACUTE SYSTOLIC (CONGESTIVE) HEART FAILURE (2) Chronic kidney disease Current Visit: Yes Status: Chronic Code(s): N18.9 - CHRONIC KIDNEY DISEASE, UNSPECIFIED (3) COPD (chronic obstructive pulmonary disease) Current Visit: Yes Status: Chronic (4) Anemia Current Visit: Yes Status: Chronic Qualifiers: Anemia type: unspecified type Qualified Code(s): D64.9 - Anemia, unspecified Code(s): D64.9 - ANEMIA, UNSPECIFIED (5) Coronary arteriosclerosis after coronary artery bypass grafting Current Visit: Yes Status: Chronic Code(s): I25.810 - ATHEROSCLEROSIS OF CABG W/O ANGINA PECTORIS (6) Dementia Current Visit: Yes Status: Chronic Qualifiers: Dementia type: Alzheimer's disease Code(s): F03.90 - UNSPECIFIED DEMENTIA WITHOUT BEHAVIORAL DISTURBANCE (7) Chronic atrial fibrillation Current Visit: Yes Status: Chronic Assessment & Plan: paced rhythm inr therapeutic Code(s): I48.2 - CHRONIC ATRIAL FIBRILLATION
[2017-04-27] MEDS ORDERED: Coumadin 2 MG PO SCH (09:15)
[2017-04-27] MEDS ORDERED: NON-FORMULARY ITEM (Warfarin Sodium [Coumadin] 4 MG) PO SCH (09:15)
[2017-04-27] MEDS ORDERED: Ms Contin 15 MG PO SCH (10:00)
[2017-04-27] MEDS ORDERED: Lasix 40 MG/4 ML IV SCH (10:00)
[2017-04-27] MEDS ORDERED: SYNTHROID 75 MCG PO SCH (10:00)
[2017-04-27] MEDS ORDERED: NEURONTIN 300 MG PO SCH (10:00)
[2017-04-27] MEDS ORDERED: VITAMIN D PO SCH (10:00)
[2017-04-27] MEDS ORDERED: Aricept 10 MG PO SCH (10:00)
[2017-04-27] MEDS: NEURONTIN 300 MG PO SCH ×3 (11:02→22:04)
[2017-04-27] MEDS: SYNTHROID 75 MCG PO SCH (11:02)
[2017-04-27] MEDS: Apresoline 25 MG TABLET PO SCH ×3 (11:03→22:04)
[2017-04-27] MEDS: MS CONTIN 30 MG PO SCH ×2 (11:03→22:04)
[2017-04-27] MEDS: Aricept 10 MG PO SCH (11:03)
[2017-04-27] MEDS: Klor Con 10 MEQ PO SCH ×3 (11:03→22:04)
[2017-04-27] MEDS: Lasix 40 MG/4 ML IV SCH ×3 (11:04→22:06)
[2017-04-27] MEDS: COREG 12.5 MG PO SCH ×2 (11:05→22:05)
[2017-04-27] MEDS: ceLEXa 20 MG PO SCH (11:05)
[2017-04-27] MEDS: VITAMIN D PO SCH (11:06)
[2017-04-27] MEDS ORDERED: NovoLOG Insulin SQ PRN (11:53)
[2017-04-27] MEDS ORDERED: Coumadin 1 MG PO SCH (18:00)
[2017-04-27] MEDS ORDERED: Mirapex 0.5 MG Tablet PO SCH ×2 (22:00)
[2017-04-28] MEDS: MS CONTIN 30 MG PO SCH (05:50)
[2017-04-28 05:56] LABS: INR 1.7 (0.8-3.0)
[2017-04-28 06:14] LABS: ANION GAP 7.3 MEQ/L (5-15); Carbon Dioxide 36.2 mEq/L (21-32); Potassium 3.4 mEq/L (3.5-5.1)
--- NOTE | 2017-04-28 09:23 | PCM.DS ---
Discharge Summary Date of Admission: 04/26/17 18:19 Date of Discharge: 04/28/2017 Admitting Physician: BALDEV VITALE Primary Care Provider: NIALL KIM Allergies Allergies oxycodone Allergy (Verified 04/26/17 15:30) paper tape Allergy (Uncoded 04/26/17 15:30) Hospital Summary - Hospital Course Hospital Course: She had a rather sudden worsening of swelling in her bilateral lower extremities over a couple of days with no sob or chest pain. She was seen in the pain clinic and sent to [facility] who sent her to the ED, where she was found to have some lower extremity bilateral swelling and elevated bnp. She had negative ultrasound of the lower extremities. She was given IV lasix with good results and continued on the iv lasix with near resolution of the lower extremity edema and pain. She was anxious to return home and has all the home health equipment available at home. She will return there with f/u with her pcp Dr. Kim and variety saw operator Dr. Medrano. per her amlodipine had already been stopped at home and her bp had been running low at home. She is not on an verónica or an arb chronically and follows with her variety saw operator with previous hx of renal failure She was started on imdur and hydralazine in the hospital but with her complicated previous hx and following with cardiology and previously nephrology will hold off on adding back the verónica or the arb or adding the imdur or hydralazine at this time. - Vitals & Intake/Output Vital Signs: Vital Signs Temperature 98.1 F 04/28/17 07:06 Pulse Rate 72 04/28/17 07:06 Respiratory Rate 18 04/28/17 07:06 Blood Pressure 125/59 04/28/17 07:06 O2 Sat by Pulse Oximetry 96 04/28/17 07:54 Oxygen-Last Documented O2 Percentage 2 Liters = 28% Intake & Output: Intake & Output 04/25/17 04/26/17 04/27/17 04/28/17 11:59 11:59 11:59 11:59 Intake Total 720 2326 Output Total 1700 4100 Balance -980 -1774 Weight 86.806 kg 85.02 kg - Lab Result Diagrams: 04/27/17 05:35 04/28/17 05:15 Lab Results-Last 24 Hrs: Accuchecks Date 04/27/17 Date 04/27/17 Time 20:30 Time 11:41 Accucheck Value: 163 Accucheck Value: 174 Lab Results-Last 24 Hours 04/27/17 04/28/17 04/28/17 Range/Units 14:00 05:15 05:15 INR 1.70 (0.8-3.0) Sodium 146 H (136-145) mEq/L Potassium 4.0 3.4 L (3.5-5.1) mEq/L Chloride 106 (98-107) mEq/L Carbon Dioxide 36.2 H (21-32) mEq/L Anion Gap 7.3 (5-15) MEQ/L BUN 19 (9-20) mg/dL Creatinine 1.26 (0.55-1.30) mg/dl Estimated GFR 44 ML/MIN Glucose 100 (70-110) MG/DL Calcium 8.0 L (8.5-10.1) mg/dL NT-Pro-B Natriuret Pep 4454 H (0-450) pg/ml Micro Results-Entire Visit: Accuchecks Date 04/27/17 Date 04/27/17 Time 20:30 Time 11:41 Accucheck Value: 163 Accucheck Value: 174 - Radiology Exams Ordered Rad Exams-Entire Visit: Radiology Procedures Category Date Time Status ECHO W/2D AND DOPPLER [US] Routine Exams 04/29/17 08:00 Ordered - Procedures and Test Procedures and Tests throughout Hospitalization: Therapy Orders & Screens 04/26/17 20:31 RT Screen per Nursing Assess ONCE Comment: Protocol Order Physician Instructions: Greater than 3 points order RT Admission Screen Reason For Exam: Triggered on Admission Diagnosis: CHF Diagnosis: CHF Pneumonia: No Home O2: Yes Asthma: No CHF: Yes Home CPAP/BIPAP: No Home Nebs/MDI: No Total Points: 8 Discharge Exam General Appearance: no apparent distress, alert Neurologic Exam: alert, cooperative, normal mood/affect, nml cerebellar function , sensation nml, No motor deficits Skin Exam: normal color, warm, dry Eye Exam: PERRL, EOMI, eyes nml inspection Ears, Nose, Throat Exam: normal ENT inspection, pharynx normal, moist mucous membranes Neck Exam: normal inspection, non-tender, supple, full range of motion Respiratory Exam: normal breath sounds, lungs clear, No respiratory distress Cardiovascular Exam: regular rate/rhythm, normal heart sounds, edema (trace moreno LE) Gastrointestinal/Abdomen Exam: soft, No tenderness, No mass Extremity Exam: normal inspection, normal range of motion Back Exam: normal inspection, normal range of motion, No CVA tenderness, No vertebral tenderness Pelvic Exam: deferred Rectal Exam: deferred Final Diagnosis/Problem List - Final Discharge Diagnosis/Problem (1) Acute systolic CHF (congestive heart failure) Current Visit: Yes Status: Acute (2) Chronic kidney disease Current Visit: Yes Status: Chronic (3) COPD (chronic obstructive pulmonary disease) Current Visit: Yes Status: Chronic (4) Anemia Current Visit: Yes Status: Chronic (5) Coronary arteriosclerosis after coronary artery bypass grafting Current Visit: Yes Status: Chronic (6) Dementia Current Visit: Yes Status: Chronic (7) Chronic atrial fibrillation Current Visit: Yes Status: Chronic - Discharge Discharge Date: 04/28/17 Disposition: Home, Self-Care Condition: Stable Prescriptions: Continue Pramipexole Di-HCl 0.5 mg [Mirapex 0.5 MG Tablet] 1 mg PO HS Morphine Sulfate [Morphine Sulfate ER] 30 mg PO Q8H Gabapentin 300 mg PO TID Carvedilol [Coreg] 25 mg PO BID Donepezil HCl 10 mg [Aricept 10 MG] 10 mg PO DAILY Levothyroxine Sodium 75 Mcg [Synthroid 75 Mcg] 75 mcg PO DAILY Cholecalciferol (Vitamin D3) [Vitamin D] 1,000 unit PO DAILY Bumetanide [Bumex] 2 mg PO DAILY Bumetanide [Bumex] 1 mg PO EVENING MEAL Warfarin Sodium 2 mg [Coumadin 2 MG] 2 mg PO UD Citalopram Hydrobromide 20 mg* [ceLEXa 20 MG] 20 mg PO DAILY Potassium Chloride 20 meq PO DAILY Warfarin Sodium 1 mg [Coumadin 1 MG] 1 mg PO 2XW Instructions: Heart Failure Follow up with: NIALL KIM [Primary Care Provider] -
[2017-04-28] MEDS: NEURONTIN 300 MG PO SCH (09:35)
[2017-04-28] MEDS: Klor Con 10 MEQ PO SCH (09:35)
[2017-04-28] MEDS: VITAMIN D PO SCH (09:36)
[2017-04-28] MEDS: SYNTHROID 75 MCG PO SCH (09:36)
[2017-04-28] MEDS: COREG 12.5 MG PO SCH (09:36)
[2017-04-28] MEDS: Apresoline 25 MG TABLET PO SCH (09:36)
[2017-04-28] MEDS: Lasix 40 MG/4 ML IV SCH (09:36)
[2017-04-28] MEDS: Aricept 10 MG PO SCH (09:36)
[2017-04-28] MEDS: ceLEXa 20 MG PO SCH (09:36)
[2017-04-28] MEDS ORDERED: Klor Con 10 MEQ PO SCH (10:00)
[2017-04-28 11:17] VITALS: BP 129/59; PULSE 70; O2SAT 94
[2017-04-28] MEDS ORDERED: Coumadin 2 MG PO SCH (18:00)
== END 2017-04-28 13:15 | disposition home or self-care (01) ==
LOC: ED 15:05 → MED SURG 18:19
PROVIDERS: ADMIT Family Medicine; ATTEND Internal Medicine
DX: I50.21 Acute systolic (congestive) heart failure (principal); I50.84 End stage heart failure; I12.9 Hypertensive chronic kidney disease with stage 1 through stage 4 chronic kidney disease, or unspecified chronic kidney disease; N18.9 Chronic kidney disease, unspecified; J44.9 Chronic obstructive pulmonary disease, unspecified; D64.9 Anemia, unspecified; I25.810 Atherosclerosis of coronary artery bypass graft(s) without angina pectoris; F03.90 Unspecified dementia, unspecified severity, without behavioral disturbance, psychotic disturbance, mood disturbance, and anxiety; I48.2 Chronic atrial fibrillation; Z79.01 Long term (current) use of anticoagulants; Z79.899 Other long term (current) drug therapy; E11.9 Type 2 diabetes mellitus without complications
CPT/HCPCS: 36000; 36415; 71010; 80048; 80053; 81000; 82962; 83036; 83880; 84132; 85025; 85027; 85610; 93005; 93268; 93970; 94760; 96374; 99285; G0378; J1940; J3480; A9270-GY

== ENCOUNTER 2017-10-09 09:30 | Day surgery (SDC) | payer MEDICARE ==
[2017-10-09] MEDS ORDERED: DIPRIVAN 200 MG/20 ML IV ONE (09:31)
[2017-10-09] MEDS ORDERED: LIDOCAINE HCL 1% AMPUL 5 ML IJ ONE (09:31)
[2017-10-09 11:27] LABS: Hematocrit 31.7 % (35-47); Hemoglobin 9.9 gm/dl (12.0-16.0); Mean Cell Volume 93.8 fl (78-100); Mean Corpuscular Hgb Concent. 31.2 g/dl (32-36); Platelet Count 150 K/mm3 (150-450); Red Blood Count 3.38 M/mm3 (4.1-5.4); Red Cell Distribution Width 15.2 % (11.5-14.0); White Blood Count 5.2 K/mm3 (4.0-10.5)
[2017-10-09 11:42] LABS: Mean Corpuscular Hemoglobin 29.2 pg (26-32)
[2017-10-09 11:49] LABS: INR 1.07 (0.8-3.0)
[2017-10-09 11:52] LABS: PTT 24.5 SECONDS (25.3-37.0)
[2017-10-09] MEDS ORDERED: Lactated Ringers 1,000 ML IV ONE ×2 (12:30→14:14)
--- NOTE | 2017-10-09 13:31 | XRAY ---
38 seconds fluoroscopy time in surgery for left L3-5 MBB.
--- NOTE | 2017-10-09 13:33 | XRAY ---
Indication: Left L3-L5 MBB. Intraoperative fluoroscopy was provided for 38 seconds. 5 digital spot images submitted for interpretation demonstrates posterior spinal needle tips projecting over the expected course of the left L3, L4, and L5 nerve roots. Correlate with intraoperative findings/report. Incidental L3 kyphoplasty.
--- NOTE | 2017-10-10 10:54 | OP ---
DATE OF PROCEDURE: 10/09/2017 1235 SURGEON: Jaswinder Ochoa D.O. PREOPERATIVE DIAGNOSIS: Degenerative lumbar spine disease, spondylosis, low back pain. POSTOPERATIVE DIAGNOSIS: Degenerative lumbar spine disease, spondylosis, low back pain. PROCEDURE PERFORMED: Left L5, L4, L3 medial branch block under fluoroscopic guidance. DESCRIPTION OF THE PROCEDURE: The patient was taken to the operating room and placed in the prone position on the table. Skin at the injection site was prepped and draped in sterile fashion. Under fluoroscopy, bony anatomy of the targeted injection site was visualized. Induction agent was given as per anesthesia while vital signs were monitored. Local anesthetic agent of 0.5 cc of 1% lidocaine preservative free was introduced to anesthetize the skin and the subcutaneous tissue through the injection site. Under fluoroscopic guidance, a #20 gauge standard spinal needle was advanced into the target medial branch through the oblique approach. The preservative free 0.5 cc of 1% lidocaine and 0.5 cc of 0.25%-0.5% Marcaine were injected into each of the targeted medial branch nerve. After the needle was being removed, the skin was cleansed with alcohol and then a bandage was applied. No complications or adverse consequences were observed. The patient was returned to the holding area until stabilized before discharge to home. The preoperative pain level is 10 out of 10 and postoperative pain level is 0 out of 10. The patient will be followed up within ten days after the injection for re-evaluation.
== END 2017-10-09 13:15 | disposition home or self-care (01) ==
LOC: SDC-PAIN 09:30
PROVIDERS: ATTEND Internal Medicine
DX: M46.96 Unspecified inflammatory spondylopathy, lumbar region (principal); M51.36 Other intervertebral disc degeneration, lumbar region; M54.5 Low back pain; Z79.891 Long term (current) use of opiate analgesic
CPT/HCPCS: 36415; 64493; 64494; 64495; 72020; 77003; 82962; 85027; 85610; 85730; J2704

== ENCOUNTER 2017-11-06 07:21 | Day surgery (SDC) | payer MEDICARE ==
[2017-11-06] MEDS ORDERED: Marcaine Mpf 0.5% Vial 30 Ml IJ ONE (07:22)
[2017-11-06] MEDS ORDERED: DIPRIVAN 200 MG/20 ML IV ONE (07:22)
[2017-11-06] MEDS ORDERED: XYLOCAINE-MPF 1% 5ML SDV IJ ONE (07:22)
[2017-11-06 08:43] LABS: Hemoglobin 10.5 gm/dl (12.0-16.0); Mean Cell Volume 91.7 fl (78-100); Mean Corpuscular Hemoglobin 29.1 pg (26-32); Mean Corpuscular Hgb Concent. 31.8 g/dl (32-36); Mean Platelet Volume 12.2 fl (6-9.5); Platelet Count 142 K/mm3 (150-450); Red Cell Distribution Width 14.8 % (11.5-14.0); White Blood Count 4.8 K/mm3 (4.0-10.5)
[2017-11-06 09:24] LABS: INR 1.12 (0.8-3.0)
[2017-11-06 09:27] LABS: PTT 27.9 SECONDS (25.3-37.0)
[2017-11-06] MEDS ORDERED: Lactated Ringers 1,000 ML IV ONE (11:54)
--- NOTE | 2017-11-06 18:45 | XRAY ---
Exam: Single view spine from 11/06/2017 Comparison: Single view spine from 10/09/2017. Indication: Left L4-S1 MBB. Findings: 30 seconds of intraoperative fluoroscopy time was utilized using the C-arm. 3 PA films were obtained. I note evidence of prior kyphoplasty at L2 and L3. There is significant tortuosity and atherosclerotic vascular calcification of the distal abdominal aorta. Spinal needle tips are seen projected over the anticipated exiting left L3, L4, and L5 nerve roots. Please correlate with intraoperative findings/report.
--- NOTE | 2017-11-07 08:05 | XRAY ---
30 seconds fluoroscopy time in surgery for left L4-S1 MBB.
--- NOTE | 2017-11-07 08:45 | OP ---
AMENDED REPORT: DATE OF PROCEDURE: 11/06/2017 1159 SURGEON: Jaswinder Ochoa D.O. PREOPERATIVE DIAGNOSIS: Degenerative lumbar spine disease, spondylosis, low back pain. POSTOPERATIVE DIAGNOSIS: Degenerative lumbar spine disease, spondylosis, low back pain. PROCEDURE PERFORMED: Left L5, L4, L3 medial branch block under fluoroscopic guidance. DESCRIPTION OF THE PROCEDURE: The patient was taken to the operating room and placed in the prone position on the table. Skin at the injection site was prepped and draped in sterile fashion. Under fluoroscopy, bony anatomy of the targeted injection site was visualized. Induction agent was given as per anesthesia while vital signs were monitored. The medication used for this procedure is 3 cc 0.5% Marcaine preservative-free. The local anesthetic agent used for this injection is 5 cc of 1% lidocaine preservative-free. Under fluoroscopic guidance, a #20 gauge standard spinal needle was advanced into the target medial branch through the oblique approach. After the needle was being removed, the skin was cleansed with alcohol and then a bandage was applied. No complications or adverse consequences were observed. The patient was returned to the holding area until stabilized before discharge to home. Preoperative pain level is 10 out of 10 and the postoperative pain level is 0 out of 10. The patient will be followed up within ten days after the injection for re-evaluation.
== END 2017-11-06 12:35 | disposition home or self-care (01) ==
LOC: SDC-PAIN 07:21
PROVIDERS: ATTEND Internal Medicine
DX: M46.96 Unspecified inflammatory spondylopathy, lumbar region (principal); M51.36 Other intervertebral disc degeneration, lumbar region; M54.5 Low back pain; M47.816 Spondylosis without myelopathy or radiculopathy, lumbar region; Z79.891 Long term (current) use of opiate analgesic
CPT/HCPCS: 36415; 64493; 64494; 64495; 72020; 77003; 82962; 85027; 85610; 85730; J2704

== ENCOUNTER 2019-02-19 09:13 | Day surgery (SDC) | payer MEDICARE ==
--- NOTE | 2019-02-18 08:57 | HP ---
DATE: 02/19/19 ANTICIPATED PROCEDURE: Cyst on back excision. HISTORY OF PRESENT ILLNESS: The patient has a cyst on the back requiring excision. Presents for such. PAST MEDICAL HISTORY: ALLERGIES: NONE. CURRENT MEDICATIONS: None. SURGERIES: Appendectomy, back surgery, female surgery. SOCIAL HISTORY: Negative. FAMILY HISTORY: Negative. REVIEW OF SYSTEMS: Heart disease, diabetes, lungs, back. PHYSICAL EXAMINATION: Vital signs normal. CHEST: Clear. COR: Regular. ABDOMEN: Satisfactory. IMPRESSION: 1. CYST ON LOWER BACK. PLAN: Excision.
[~2019-02-19 09:13] MED LIST changes: -DIPRIVAN 200 MG/20 ML IV ONE; +XYLOCAINE 1% HCL 20 ML MDV ONE
[2019-02-19] MEDS ORDERED: DEMEROL 50 MG SDV IJ ONE (09:14)
[2019-02-19] MEDS ORDERED: VERSED 5 MG/5 ML IV ONE (09:14)
[2019-02-19] MEDS ORDERED: Lactated Ringers 1,000 ML IV SCH ×2 (09:30)
[2019-02-19] MEDS ORDERED: KEFZOL 1 GM ONE (11:02)
[2019-02-19 13:21] VITALS: O2SAT 95
[2019-02-19 13:32] VITALS: BP 138/72; PULSE 88
--- NOTE | 2019-02-20 10:21 | OP ---
SURGERY DATE: 02/19/19 SURGERY TIME: 1114 PREOPERATIVE DIAGNOSIS: 1. SEBACEOUS CYST OF THE BACK, RECURRENT. POSTOPERATIVE DIAGNOSIS: 1. SEBACEOUS CYST OF THE BACK, RECURRENT, 2 CM. PROCEDURE: 1. Excision and closure. SURGEON: Sidney Chavez M.D. ANESTHESIA: Local IV sedation 15 minutes monitored. COMPLICATIONS: None. CONDITION: Stable. INDICATION: Patient requiring removal of recurrent cyst. OPERATIVE PROCEDURE: Taken to surgery. IV sedation titrated. Oximetry was kept over 90%. Comfort level satisfactory. 1% Lidocaine. Time-out performed. Elliptical excision. Hemostasis obtained with electrocautery. Approximated with vertical mattress sutures of #4-0 Prolene, 3-0 Prolene, sterile dressing applied. Patient tolerated the procedure satisfactory.
== END 2019-02-19 13:25 | disposition home or self-care (01) ==
LOC: SDC 09:13
PROVIDERS: ATTEND Surgery
DX: L72.0 Epidermal cyst (principal); E11.9 Type 2 diabetes mellitus without complications; I51.9 Heart disease, unspecified; Z79.899 Other long term (current) drug therapy
CPT/HCPCS: 82962; 88305; J0690; J2175; J2250